=== PATIENT | female | born 1990 | race Caucasian/White ===

== ENCOUNTER 2016-06-10 18:45 | Emergency (ER) | payer OTHER ==
[~2016-06-10] VITALS: Ht 167.6 cm; Wt 68.0 kg
[~2016-06-10 18:45] MED LIST: CIPRO500 M1 PO; DESMOPRESS10 MCG/0.2 NAS; DILAUDID2 M1 PO; DOXYCYCLINE HY100 M4 PO; EXCEDRIN EXTRA1 EACH PO; IBUPROFEN800 M1 PO; MIRENA1 EACH; NEULASTA6 MG/0.6 M IM; PERCOCET 5-3251 EACH PO; PRENATAL1 TA2 PO
[2016-06-10] MEDS ORDERED: PYRIDIUM100 M1 PO (19:34)
[2016-06-10] MEDS ORDERED: MACROBID 100 M100 MG PO (19:34)
--- NOTE | 2016-06-10 19:34 | ED GI/GU/ABDOMINAL COMPLAINT ---
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) midazolam (From VERSED) (PER PT - MAKES ME VERY EMOTIONAL, EXTREME MOOD SWINGS 09/24/15) Reconcile Medications Aspirin/Acetaminophen/Caffeine (Excedrin Extra Strength Caplet) 1 EACH TABLET 2 TAB PO PRN PAIN (Reported) Ciprofloxacin HCl (Cipro) 500 MG TABLET 1 TAB PO BID URINE/KIDNEY INFECTION Desmopressin Acetate 10 MCG/0.1 ML SPRAY.PUMP 1 SPRAY YELITZA AD PRN BLEEDING ( Reported) Doxycycline Hyclate 100 MG TABLET 1 TAB PO BID infection Hydromorphone HCl (Dilaudid) 2 MG TABLET 2 TAB PO Q4 PRN pain Ibuprofen 800 MG TABLET 1 TAB PO TID PAIN (Reported) Levonorgestrel (Mirena) 1 EACH IUD CONTROL (Reported) Oxycodone HCl/Acetaminophen (Percocet 5-325 MG Tablet) 1 EACH TABLET 1 TAB PO TID PRN pain ten...[id number] Pegfilgrastim (Neulasta) 6 MG/0.6 ML SYRINGE 6 MG IM Q30D WHITE BLOOD CELLS ( Reported) Phenazopyridine HCl (Pyridium) 100 MG TABLET 1 TAB PO TID PRN DYSURIA Triage Note: 25 Y/O FEMALE C/O URINARY SYMPTOMS. STATES SHE IS "PEEING RAZOR BLADES". TOOK AZO WITH NO RELIEF. TOOK TYLENOL AT 1715 WITH GOOD RELIEF OF FEVER, NOT OF PAIN PER PT. Triage Nurses Notes Reviewed? yes ? N Is pt currently ? No Onset: Gradual Duration: hour(s): (3) Timing: remote history Quality/Severity: moderate Severity Numbers: 8 Location: WITH URINATION Radiation: back Activities at Onset: none Prior Abdominal Problems: similar symptoms Past Sexual History: Unobtainable at this time HPI: Patient is a 25-year-old female with history of von Willebrand's and autoimmune thrombocytopenia with history of neutropenic fever on Neupogen complaining of bilateral low back pain, dysuria urgency and frequency that started about 2-3 hours prior to arrival. History of UTI several years ago. Fevers up to 102 prior to arrival that was treated with Tylenol. Denies any vomiting but reports nausea. Denies any chest pain, shortness of breath, upper respiratory symptoms or abdominal pain. She does overpressure over the bladder. Symptoms moderate to severe. Denies any radiation of the pain. (KAYKAY PÉREZ) Vital Signs & Intake/Output Vital Signs & Intake/Output Vital Signs Date Time Temp Pulse Resp B/P Pulse O2 O2 Flow FiO2 Ox Delivery Rate 06/10 2345 97.6 96 18 119/79 96 Room Air 06/10 2244 97.2 103 18 122/82 96 Room Air 06/10 2037 98.2 87 18 125/75 100 Room Air 06/10 1849 98.0 90 18 123/83 99 Room Air ED Intake and Output 06/11 0000 06/10 1200 Intake Total 1000 Output Total Balance 1000 Intake, IV 1000 Patient 150 lb Weight Past History Travel History Traveled to [place] past 21 day No Medical History Neurological: migraine EENT: NONE Cardiovascular: NONE Respiratory: NONE Gastrointestinal: NONE Hepatic: NONE Renal: NONE Musculoskeletal: NONE Psychiatric: NONE Endocrine: NONE Blood Disorders: VON WILLDEBRAUNS AUTOIMMUNE PANCYTOPENIA Cancer(s): NONE 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 No (KAYKAY PÉREZ) Medical History Any Pertinent Medical History? see below for history (TERESA LEE,VINAY Cee) Review of Systems Review of Systems Constitutional: Reports: fever, malaise. Comments Review of systems: See HPI, All other systems negative. Constitutional, no weight loss HEENT: No visual changes no sore throat no congestion Cardiovascular: No chest pain ,palpitation , orthopnea or ankle swelling Skin, no jaundice no rashes Respiratory: No dyspnea cough sputum or hemoptysis GI: no vomiting : Positive dysuria and hematuria Muscle skeletal: no neck pain, Neurologic: No numbness no confusion Psych: No stress anxiety or depression,. Heme/endocrine: No bruising no bleeding no polyuria or polydipsia Immunology: No splenectomy or history of AIDS (KAYKAY PÉREZ) Physical Exam Physical Exam General Appearance: well developed/nourished, alert, awake, UNCOMFORTABLE Gastrointestinal: normal bowel sounds, soft Comments: Well-developed well-nourished person in no acute distress HEENT: Nose is atraumatic. External auditory canal and Tympanic membranes clear. Pharynx normal. No swelling or edema. Neck:NORMAL INSPECTION Back: BILATERAL CVA TENDERNESS. Full range of motion Cardiovascular: Regular rate and rhythms no murmurs rubs or gallops, normal JVP Respiratory: Chest nontender. No respiratory distress.breath sounds clear to auscultation bilaterally Abdomen: Soft, nontender nondistended, no appreciable organomegaly. Normal bowel sounds. No ascites Extremity: No edema Neuro: Alert oriented x3 Skin: No appreciable rash on exposed skin, skin is warm and dry. Psych: Mood and affect is normal, memory and judgment is normal. (BOBBY ESTRADA,KAYKAY) Core Measures ACS in differential dx? No Severe Sepsis Present: No Septic Shock Present: No (TERESA LEE,VINAY Cee) Progress Differential Diagnosis: UTI/pyelo, DEHYDRATION, LIKE i ABNORMALITY, SEPSIS Radiology Impression: PATIENT: ALEXUS RAMIREZ PRESENT AGE: 25 PATIENT ACCOUNT NO: [id number] : 90 LOCATION: [facility] ORDERING PHYSICIAN: VINAY EASON MD SERVICE DATE: 06/10/16 EXAM TYPE: CAT - CT ABD & PELVIS W IV CONTRAST EXAMINATION: CT ABDOMEN AND PELVIS WITH CONTRAST CLINICAL INFORMATION: Back pain and UTI. COMPARISON: None. TECHNIQUE: Multidetector volumetric imaging was performed of the abdomen and pelvis before and after the IV administration of 97 mL of Omnipaque 320 intravenous contrast. Sagittal and coronal reformatted images were obtained on the technologist's workstation. DLP: 274 mGy-cm. FINDINGS: LUNG BASES: The visualized lung bases are unremarkable. LIVER, GALLBLADDER, AND BILIARY TREE: The liver is normal in size, shape, and attenuation. No focal hepatic lesion or biliary ductal dilatation is present. The gallbladder is unremarkable with no evidence of radiopaque gallstones, gallbladder wall thickening, or obvious pericholecystic inflammatory changes. PANCREAS: Unremarkable. SPLEEN: Unremarkable. ADRENAL GLANDS: Unremarkable. KIDNEYS AND URETERS: Subtle areas of cortical striation in hypoattenuation are present around the calyces in both kidneys, more notably in the upper poles. These findings may represent subtle areas of mild pyelonephritis vs late corticomedullary phase differentiation (a normal appearance of the kidney at a time enhancement). No significant perinephric inflammatory changes. No significant hypoperfusion of the kidneys. No nephrolithiasis or hydronephrosis. Ureters are normal in appearance. BLADDER: Unremarkable. GASTROINTESTINAL TRACT: Stomach, small bowel, and colon are normal in caliber. No bowel wall thickening or surrounding inflammatory changes. Appendix is normal. No intraperitoneal free fluid or free air. ABDOMINAL WALL: Punctate fat-containing umbilical hernia. No bowel involvement. LYMPH NODES: Normal. VASCULAR: Unremarkable. PELVIC VISCERA: The uterus and adnexa are unremarkable. OSSEOUS STRUCTURES: Unremarkable. IMPRESSION: Subtle foci of cortical hypoattenuation in both kidneys which are concerning for early pyelonephritis. It is possible that these are artifactual from the phase of contrast enhancement, though this is less likely. DICTATED BY: JAMAAL RODRÍGUEZ MD DATE/TIME DICTATED:06/10/162144 PERSONAL TRAINER:VICKI DATE/TIME TRANSCRIBED:06/10/162144 CONFIDENTIAL, DO NOT COPY WITHOUT APPROPRIATE AUTHORIZATION. <Electronically signed in Other Vendor System> SIGNED BY: JAMAAL RODRÍGUEZ MD 06/10/162205 Initial ED EKG: none Hand-Off Endorsed To: VINAY EASON MD Endorsed Time: 1954 Pending: labs (KAYKAY PÉREZ) Plan of Care: Orders Procedure Date/time Status BLOOD CULTURE 06/10 1945 Active COMPREHENSIVE METABOLIC PANEL 06/10 1945 Complete CBC WITHOUT DIFFERENTIAL 06/10 1945 Complete CULTURE,URINE 06/10 1849 Active URINE 06/10 1849 Complete URINALYSIS 06/10 1849 Complete Current Medications Sig/Angel Start time Last Medication Dose Stop Time Status Admin Ciprofloxacin 500 MG ONCE ONE 06/10 1944 CAN (Cipro) 06/10 1945 Oxycodone HCl 5 MG ONCE ONE 06/10 1944 CAN (Roxicodone) 06/10 1945 Laboratory Tests 06/10/16 2011: Anion Gap 10, Estimated GFR > 60, BUN/Creatinine Ratio 30.0 H, Glucose 88, Calcium 8.8, Total Bilirubin 0.3, AST 20, ALT 32, Alkaline Phosphatase 80, Total Protein 6.8, Albumin 4.3, Globulin 2.5, Albumin/Globulin Ratio 1.7, CBC w Diff NO MAN DIFF REQ, RBC 4.85, MCV 78.0 L, MCH 25.5 L, RDW 17.8 H, MPV 11.7 H, Gran % 31.0 L, Lymphocytes % 29.6, Monocytes % 13.7 H, Eosinophils % 24.8 H, Basophils % 0.9, Absolute Granulocytes 2.0, Absolute Lymphocytes 1.9, Absolute Monocytes 0.9 H, Absolute Eosinophils 1.6, Absolute Basophils 0.1, PUBS MCHC 32.7 L 06/10/161899: Urine Color ORANG H, Urine Clarity CLEAR, Urine pH 5.0, Ur Specific [place] 1.020, Urine Protein 100 H, Urine Ketones TRACE H, Urine Nitrite POS H, Urine Bilirubin NEG, Urine Urobilinogen >=8.0 H, Ur Leukocyte Esterase SMALL H, Ur Microscopic SEDIMENT EXAMINED, Urine RBC 3-5, Urine WBC 25-50 H, Ur Epithelial Cells MANY H, Urine Hemoglobin TRACE-INTACT, Urine Glucose 250 H, Urine Test NEGATIVE Microbiology 06/10 2115 BLOOD: Blood Culture - RECD 06/10 2010 BLOOD: Blood Culture - RECD 06/10 1899 URINE ROUT: Urine Culture - RECD Diagnostic Imaging: Discussed w/RAD: CT Scan. Radiology Impression: PATIENT: ALEXUS RAMIREZ PRESENT AGE: 25 PATIENT ACCOUNT NO: [id number] : 90 LOCATION: [facility] ORDERING PHYSICIAN: VINAY EASON MD SERVICE DATE: 06/10/16 EXAM TYPE: CAT - CT ABD & PELVIS W IV CONTRAST EXAMINATION: CT ABDOMEN AND PELVIS WITH CONTRAST CLINICAL INFORMATION: Back pain and UTI. COMPARISON: None. TECHNIQUE: Multidetector volumetric imaging was performed of the abdomen and pelvis before and after the IV administration of 97 mL of Omnipaque 320 intravenous contrast. Sagittal and coronal reformatted images were obtained on the technologist's workstation. DLP: 274 mGy-cm. FINDINGS: LUNG BASES: The visualized lung bases are unremarkable. LIVER, GALLBLADDER, AND BILIARY TREE: The liver is normal in size, shape, and attenuation. No focal hepatic lesion or biliary ductal dilatation is present. The gallbladder is unremarkable with no evidence of radiopaque gallstones, gallbladder wall thickening, or obvious pericholecystic inflammatory changes. PANCREAS: Unremarkable. SPLEEN: Unremarkable. ADRENAL GLANDS: Unremarkable. KIDNEYS AND URETERS: Subtle areas of cortical striation in hypoattenuation are present around the calyces in both kidneys, more notably in the upper poles. These findings may represent subtle areas of mild pyelonephritis vs late corticomedullary phase differentiation (a normal appearance of the kidney at a time enhancement). No significant perinephric inflammatory changes. No significant hypoperfusion of the kidneys. No nephrolithiasis or hydronephrosis. Ureters are normal in appearance. BLADDER: Unremarkable. GASTROINTESTINAL TRACT: Stomach, small bowel, and colon are normal in caliber. No bowel wall thickening or surrounding inflammatory changes. Appendix is normal. No intraperitoneal free fluid or free air. ABDOMINAL WALL: Punctate fat-containing umbilical hernia. No bowel involvement. LYMPH NODES: Normal. VASCULAR: Unremarkable. PELVIC VISCERA: The uterus and adnexa are unremarkable. OSSEOUS STRUCTURES: Unremarkable. IMPRESSION: Subtle foci of cortical hypoattenuation in both kidneys which are concerning for early pyelonephritis. It is possible that these are artifactual from the phase of contrast enhancement, though this is less likely. DICTATED BY: JAMAAL RODRÍGUEZ MD DATE/TIME DICTATED:06/10/162144 PERSONAL TRAINER:VICKI DATE/TIME TRANSCRIBED:06/10/162144 CONFIDENTIAL, DO NOT COPY WITHOUT APPROPRIATE AUTHORIZATION. <Electronically signed in Other Vendor System> SIGNED BY: JAMAAL RODRÍGUEZ MD 06/10/164 Comments: 06/10/2016 10:43:57 PM I have updated neck: Her test results and her calculated ANC is just over 2000. The patient feels comfortable with treating her kidney infection at home with pain medication and antibiotics along as the pain is controlled. Dilaudid has been ordered. 06/10/2016 11:56:25 PM patient's pain has improved and she feels confident that if she takes 4 mg of Dilaudid every 4-6 hours that her pain will be adequately controlled at home. She feels comfortable with outpatient treatment at this point. She has an appointment scheduled tomorrow for IgG treatment and will be seeing her hematology clinical operations specialist. (TERESA LEE,VINAY Cee) Departure Departure Time of Disposition: 1931 Disposition: HOME OR SELF CARE Condition: Stable Clinical Impression Primary Impression: Urinary tract infection Qualifiers: Urinary tract infection type: acute cystitis Hematuria presence: with hematuria Qualified Code: N30.01 - Acute cystitis with hematuria Referrals: CHAS WOLFF MD (PCP/Family) Departure Forms: Customer Survey General Discharge Information (BOBBYKAYKAY MENDEZ) Departure Additional Instructions: Follow-up with your hematology oncology appointment tomorrow as scheduled. Take antibiotics as prescribed. Increase fluids. Take Pyridium as directed to help with bladder spasms. Notify your primary care doctor of this emergency department visit and treatment plan. Return for worsening symptoms or concerns. Please note that there might be incidental findings in your evaluation that are unrelated to the current emergency department visit. Please notify your primary care doctor about this emergency department visit in order to obtain and review all of the testing performed so that these incidental findings can be monitored as needed. If you had an x-ray performed, please understand that some fractures may not be seen on the initial set of x-rays. If your symptoms persist you might need a repeat set of x-rays to check for such a fracture. If you had a laceration evaluated, please understand that foreign bodies such as glass or wood may not be visible to the naked eye or on plain x-rays. If the wound becomes red, swollen, increasingly more painful or if there is any drainage from the wound, please have it reevaluated by a physician for the possibility of a retained foreign body. Thank you for choosing the [facility] for your care. It was a pleasure to serve you today. Vinay Eason M.D. [facility] Prescriptions: Current Visit Scripts Ciprofloxacin HCl (Cipro) 1 TAB PO BID #20 TAB Hydromorphone HCl (Dilaudid) 2 TAB PO Q4 PRN pain #20 TAB Phenazopyridine HCl (Pyridium) 1 TAB PO TID PRN DYSURIA #10 TAB (TERESA LEE,VINAY Cee) Critical Care Note Critical Care Note Critical Care Time: 30-74 min (VINAY EASON MD)
[2016-06-10] MEDS ORDERED: CIPRO500 M1 PO (19:40)
[2016-06-10 20:21] LABS: ABSOLUTE BASOPHIL COUNT 0.1 /CUMM (0.0-0.2); ABSOLUTE EOSINOPHIL COUNT 1.6 /CUMM (0.0-0.7); ABSOLUTE LYMPH COUNT 1.9 /CUMM (1.2-3.4); ABSOLUTE MONOCYTE COUNT 0.9 /CUMM (0.10-0.60); BASOPHIL % 0.9 % (0.0-2.0); HEMATOCRIT 37.8 % (37-47); MEAN CORPUSCULAR HGB 25.5 PG (27.0-31.0); MEAN CORPUSCULAR HGB CONC 32.7 G/DL (33.0-37.0); MEAN PLATELET VOLUME 11.7 FL (7.4-10.4); PLATELET COUNT 116 /CUMM (130-400); RBC DISTRIBUTION WIDTH 17.8 % (11.5-14.5); RED BLOOD CELL CT 4.85 /CUMM (4.20-5.40); WHITE BLOOD CELL COUNT 6.5 /CUMM (4.8-10.8)
[2016-06-10 20:35] LABS: EOSINOPHIL % 24.8 % (0-5)
--- NOTE | 2016-06-10 22:06 | CT SCAN REPORT ---
EXAMINATION: CT ABDOMEN AND PELVIS WITH CONTRAST CLINICAL INFORMATION: Back pain and UTI. COMPARISON: None. TECHNIQUE: Multidetector volumetric imaging was performed of the abdomen and pelvis before and after the IV administration of 97 mL of Omnipaque 320 intravenous contrast. Sagittal and coronal reformatted images were obtained on the technologist's workstation. DLP: 274 mGy-cm. FINDINGS: LUNG BASES: The visualized lung bases are unremarkable. LIVER, GALLBLADDER, AND BILIARY TREE: The liver is normal in size, shape, and attenuation. No focal hepatic lesion or biliary ductal dilatation is present. The gallbladder is unremarkable with no evidence of radiopaque gallstones, gallbladder wall thickening, or obvious pericholecystic inflammatory changes. PANCREAS: Unremarkable. SPLEEN: Unremarkable. ADRENAL GLANDS: Unremarkable. KIDNEYS AND URETERS: Subtle areas of cortical striation in hypoattenuation are present around the calyces in both kidneys, more notably in the upper poles. These findings may represent subtle areas of mild pyelonephritis vs late corticomedullary phase differentiation (a normal appearance of the kidney at a time enhancement). No significant perinephric inflammatory changes. No significant hypoperfusion of the kidneys. No nephrolithiasis or hydronephrosis. Ureters are normal in appearance. BLADDER: Unremarkable. GASTROINTESTINAL TRACT: Stomach, small bowel, and colon are normal in caliber. No bowel wall thickening or surrounding inflammatory changes. Appendix is normal. No intraperitoneal free fluid or free air. ABDOMINAL WALL: Punctate fat-containing umbilical hernia. No bowel involvement. LYMPH NODES: Normal. VASCULAR: Unremarkable. PELVIC VISCERA: The uterus and adnexa are unremarkable. OSSEOUS STRUCTURES: Unremarkable. IMPRESSION: Subtle foci of cortical hypoattenuation in both kidneys which are concerning for early pyelonephritis. It is possible that these are artifactual from the phase of contrast enhancement, though this is less likely.
[2016-06-10 23:45] VITALS: BP 119/79
[2016-06-12] MEDS ORDERED: NEUPOGEN300 MCG/01 SC (14:14)
[2016-06-12] MEDS ORDERED: BUTALB-ACETAMI1 EACH PO (14:14)
== END 2016-06-11 00:12 ==
LOC: ERH 18:45
PROVIDERS: Physician Assistant
DX: N39.0 Urinary tract infection, site not specified (principal)
CPT/HCPCS: 74177; 81001; 81025; 87040; 87086; 96361; 96374; 96375; 96376; J0696

== ENCOUNTER 2016-06-12 13:07 | Inpatient (IN) | payer OTHER ==
[~2016-06-12] VITALS: Ht 167.6 cm; Wt 68.0 kg
[~2016-06-12 13:07] MED LIST changes: +MACROBID 100 M100 MG PO; +PYRIDIUM100 M1 PO
--- NOTE | 2016-06-12 13:16 | NUR ---
PT TO ED C/O CONTINUED UTI. PT WAS SEEN IN ED THURSDAY AND SENT HOME WITH ABX, PYRIDIUM AND PAIN MEDS. PT STATES THIS AM THE PAIN CAME BACK, ALSO HAD A FEVER AND VOMITING. AFEBRILE NOW.
--- NOTE | 2016-06-12 13:18 | NUR ---
PT STATES WAS SENT HOME WITH PO DILAUDID, WHICH INITIALLY WORKED. TOOK A DOSE AT 1000 THIS AM, AND "IT STILL HASN'T KICKED IN". PT ALSO STATES "I WAS NEUTROPENIC YESTERDAY AT THE [facility] [employer]S OFFICE." PT PROVIDED MASK.
--- NOTE | 2016-06-12 13:29 | ED GI/GU/ABDOMINAL COMPLAINT ---
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 PT WAS SEEN IN ED THURSDAY AND SENT HOME WITH ABX, PYRIDIUM AND PAIN MEDS. PT STATES THIS AM THE PAIN CAME BACK, ALSO HAD A FEVER AND VOMITING. AFEBRILE NOW. Triage Nurses Notes Reviewed? yes ? N Is pt currently ? No Onset: Gradual Duration: getting worse Timing: recent history Quality/Severity: moderate Severity Numbers: 10 Radiation: back Activities at Onset: none HPI: Patient is a 25-year-old female with a past medical history of autoimmune PANcytopenia and von Willebrand's disorder in which patient last received IVIG yesterday by her poultry scientist Dr. Park who presents emergency room with worsening concerns of urinary tract infection fevers chills and back pain and dysuria and increased frequency of urination. Patient was seen and evaluated here at [place] emergency room 2 days ago in which patient was given ciprofloxacin, Pyridium and Dilaudid for her symptoms she states that yesterday her symptoms improved however this morning symptoms worsened in which patient has had unrelenting pain multiple EPISODES OF vomiting and is unable to tolerate anything by mouth Patient has been compliant with ciprofloxacin however feels worse. (RENE ESTRADA,LIBORIO) Reconcile Medications Butalb/Acetaminophen/Caffeine (Dxnlvk-Hoapcmyu-Mkik 50-325-40) 50 MG-325 MG-40 MG TABLET 1 TAB PO BID PRN HEADACHE (Reported) Ciprofloxacin HCl (Cipro) 500 MG TABLET 1 TAB PO BID URINE/KIDNEY INFECTION Desmopressin Acetate 10 MCG/0.1 ML SPRAY.PUMP 1 SPRAY YELITZA AD PRN BLEEDING ( Reported) Filgrastim (Neupogen) 300 MCG/0.5 ML SYRINGE 1 INJ SC QMON UNKNOWN (Reported) Hydromorphone HCl (Dilaudid) 2 MG TABLET 2 TAB PO Q4 PRN pain Phenazopyridine HCl (Pyridium) 100 MG TABLET 1 TAB PO TID PRN DYSURIA (VASU VALADEZESTELLA) Past History Travel History Traveled to [place] past 21 day No Medical History Any Pertinent Medical History? see below for history Neurological: migraine EENT: NONE Cardiovascular: NONE Respiratory: NONE Gastrointestinal: NONE Hepatic: NONE Renal: NONE Musculoskeletal: NONE Psychiatric: NONE Endocrine: NONE Blood Disorders: VON WILLDEBRAUNS AUTOIMMUNE PANCYTOPENIA Cancer(s): NONE TRAVEL ADMINISTRATOR/Reproductive: NONE Surgical History Surgical History: non-contributory, N Psychosocial History What is your primary language Croatian Tobacco Use: Never used ETOH Use: occasional use Illicit Drug Use: denies illicit drug use Family History Hx Contributory? No (LIBORIO BERNAL) Review of Systems Review of Systems Constitutional: Reports: see HPI, chills, fever. EENTM: Reports: no symptoms. Respiratory: Reports: no symptoms. Cardiovascular: Reports: no symptoms. GI: Reports: see HPI. Genitourinary: Reports: see HPI. Musculoskeletal: Reports: see HPI, back pain. Skin: Reports: no symptoms. Neurological/Psychological: Reports: no symptoms. Hematologic/Endocrine: Reports: no symptoms. Immunologic/Allergic: Reports: no symptoms. All Other Systems: Reviewed and Negative (LIBORIO BERNAL) Physical Exam Physical Exam General Appearance: no apparent distress, alert, comfortable Gastrointestinal: normal bowel sounds, soft Comments: Well-developed well-nourished person in no acute distress HEENT: Normal EENT exam, . Neck: Supple, no lymphadenopathy, normal range of motion without pain or tenderness Back: Bilateral CVA tenderness. Full range of motion Cardiovascular: Regular rate and rhythms no murmurs rubs or gallops, normal JVP Respiratory: Chest nontender. No respiratory distress.breath sounds clear to auscultation bilaterally Abdomen: Soft, nontender nondistended, no appreciable organomegaly. Normal bowel sounds. No ascites Extremity: No edema, no calf tenderness to palpation, normal and equal pulses. Neuro: Alert oriented x3, motor sensory normal, Skin: No appreciable rash on exposed skin, skin is warm and dry. Psych: Mood and affect is normal, memory and judgment is normal. Core Measures ACS in differential dx? No Severe Sepsis Present: No Septic Shock Present: No (RENE ESTRADA,LIBOROI) Progress Differential Diagnosis: AAA, AMI, appendicitis, biliary colic, bowel obstruction , colon cancer, cholecystitis, diverticulitis, ectopic , endometritis, esophageal varices, gastritis, hepatitis, hernia, hemorrhoids, ischemic bowel, inflamm bowel dis, intrauterine , kidney stone, Cheri-Sidney tear, ovarian cyst, ovarian torsion, pancreatitis, PID/cervicitis, peptic ulcer, PUD/ GERD, perforated viscous, SBO, threatened AB, UTI/pyelo Plan of Care: Orders Procedure Date/time Status CBC WITHOUT DIFFERENTIAL 06/13 0600 Active BASIC ELECTROLYTES PLUS BUN&CR 06/13 0600 Active Regular Diet 06/12 D Active LACTIC ACID 06/12 1641 Active BLOOD CULTURE 06/12 1531 Active EKG 06/12 1527 Active Pathway - chart 06/12 1526 Active BLOOD CULTURE 06/12 1526 Active Code Status 06/12 1526 Active Admit to inpatient 06/12 1506 Active Vital Signs 06/12 1506 Active Code Status 06/12 1506 Complete Patient Data 06/12 1449 Active Intake & Output 06/12 1407 Active URINE 06/12 1342 Complete LACTIC ACID 06/12 1341 Complete URINALYSIS 06/12 1340 Complete COMPREHENSIVE METABOLIC PANEL 06/12 1340 Complete CBC WITHOUT DIFFERENTIAL 06/12 1340 Complete House Staff 06/12 UNK Active VTE Mechanical Prophylaxis 06/12 UNK Active Current Medications Sig/Angel Start time Last Medication Dose Stop Time Status Admin Cefazolin Sodium 1,000 MG IQ8 06/12 2200 AC (Kefzol-Ancef Inj) Acetaminophen 650 MG Q6P PRN 06/12 1530 AC (Tylenol) Hydromorphone HCl 0.6 MG Q4-6 PRN PRN 06/12 1530 AC (Dilaudid) Ondansetron HCl 4 MG Q6P PRN 06/12 1530 AC (Zofran) Sodium Chloride 1,000 ML Q13H 06/12 1530 AC (Normal Saline 0.9%) 06/13 0429 Laboratory Tests 06/12/16 1353: Lactic Acid 0.7, Urine Test NEGATIVE 06/12/16 1353: Anion Gap 11, Estimated GFR > 60, BUN/Creatinine Ratio 14.3, Glucose 89, Calcium 8.7, Total Bilirubin 0.4, AST 23, ALT 34, Alkaline Phosphatase 87, Total Protein 7.4, Albumin 4.3, Globulin 3.1, Albumin/Globulin Ratio 1.4, CBC w Diff MAN DIFF ORDERED, RBC 4.69, MCV 78.9 L, MCH 25.7 L, RDW 17.5 H, MPV 10.8 H, Gran % 30.0 L, Lymphocytes % 28.0, Monocytes % 9.6 H, Eosinophils % 31.6 H, Basophils % 0.8, Absolute Granulocytes 1.8, Absolute Lymphocytes 1.7, Absolute Monocytes 0.6, Absolute Eosinophils 1.9, Absolute Basophils 0, Platelet Estimate DECREASED, Hypochromic-Microcytic 1+, Anisocytosis 1+, Microcytic Cells 1+, PUBS MCHC 32.5 L, Urine Color YEL, Urine Clarity HAZY H, Urine pH 6.5, Ur Specific [place] 1.015, Urine Protein NEG, Urine Ketones NEG, Urine Nitrite POS H, Urine Bilirubin NEG, Urine Urobilinogen 1.0, Ur Leukocyte Esterase TRACE H, Ur Microscopic SEDIMENT EXAMINED, Urine WBC 5-10 H, Ur Epithelial Cells MANY H, Urine Hemoglobin NEG, Urine Glucose NEG Microbiology 06/12 1531 BLOOD: Blood Culture - COLB 06/12 1526 BLOOD: Blood Culture - COLB Due to history of present illness and exam findings patient has likely worsening symptoms of pyelonephritis. Patient will be admitted for IV antibiotics. Discussed admission plan with patient who agrees Patient states that the first dose of Dilaudid improved symptoms however she was requesting another which this was administered. Patient was given Cefzil and in which urine culture showed susceptibility (LIBORIO BERNAL) Initial ED EKG: none (LIBORIO BERNAL) Departure Departure Disposition: STILL A PATIENT Condition: Stable Clinical Impression Primary Impression: Pyelonephritis Referrals: CHAS WOLFF MD (PCP/Family) Departure Forms: Customer Survey General Discharge Information Admission Note Spoke With: JORJE LEE,NICOLE Documentation of Exam: Documentation of any treatments & extenuating circumstances including Concerns Regarding Discharge (functional status, medication knowledge or non-compliance, living conditions, etc.) that warrant an admission rather than observation: [ Discussed admission with who agrees with general medicine admission which patient has failed outpatient treatment of ANTIBIOTICS IN which patient requires IV antibiotic, IV fluid resuscitation, IV pain medication and nausea medication. Outpatient treatment at this time due to worsening symptoms and unresolved PYLENEPHRITIS in UTI would be medically harmful] (RENE ESTRADA,LIBORIO) PA/BIOFUELS PLANT CONSTRUCTION WORKER Co-Sign Statement Statement: ED Attending supervision documentation- [] I saw and evaluated the patient. I have also reviewed all the pertinent lab results and diagnostic results. I agree with the findings and the plan of care as documented in the PA's/BIOFUELS PLANT CONSTRUCTION WORKER's documentation. [x] I have reviewed the ED Record and agree with the PA's/BIOFUELS PLANT CONSTRUCTION WORKER's documentation. [] Additions or exceptions (if any) to the PAs/BIOFUELS PLANT CONSTRUCTION WORKER's note and plan are summarized below: [] (ESTELLA LEONE DO)
--- NOTE | 2016-06-12 13:56 | NUR ---
IV ESTABLISHED BLOOD AND URINE SENT TO LAB
[2016-06-12 14:06] LABS: ABSOLUTE BASOPHIL COUNT 0 /CUMM (0.0-0.2); ABSOLUTE EOSINOPHIL COUNT 1.9 /CUMM (0.0-0.7); ABSOLUTE GRANULOCYTE CT 1.8 /CUMM (1.4-6.5); ABSOLUTE LYMPH COUNT 1.7 /CUMM (1.2-3.4); ABSOLUTE MONOCYTE COUNT 0.6 /CUMM (0.10-0.60); BASOPHIL % 0.8 % (0.0-2.0); EOSINOPHIL % 31.6 % (0-5); MEAN CORPUSCULAR HGB 25.7 PG (27.0-31.0); MEAN CORPUSCULAR HGB CONC 32.5 G/DL (33.0-37.0); MEAN CORPUSCULAR VOLUME 78.9 FL (81.0-99.0); MEAN PLATELET VOLUME 10.8 FL (7.4-10.4); PLATELET COUNT 124 /CUMM (130-400); RBC DISTRIBUTION WIDTH 17.5 % (11.5-14.5); RED BLOOD CELL CT 4.69 /CUMM (4.20-5.40)
--- NOTE | 2016-06-12 14:08 | NUR ---
PT MEDICATED FOR PAIN ABX GIVEN, FLUIDS INFUSING DIRECTED
[2016-06-12] MEDS ORDERED: BUTALB-ACETAMI1 EACH PO (14:14)
[2016-06-12] MEDS ORDERED: NEUPOGEN300 MCG/01 SC (14:14)
--- NOTE | 2016-06-12 14:50 | History & Physical ---
LEX LEE,[facility] 06/12/16 1450: General Information and HPI History of Present Illness: Ms. Caraballo is a 25-year-old with a PMH significant for immunopancytopenia ( diagnosed in 2002) and Von Willebrand disease on weekly Neupogen and monthly IVIG, recurrent UTIs (3-4 times a year), chronic sinusitis s/p surgery in December 2015 complicated by toxic shock syndrome and migraine who presents with persistent flank pain and dysuria with nausea and vomiting. Patient was seen in ED 2 days ago for UTI and was discharged on ciprofloxacin, Pyridium and Dilaudid. She felt improvement in her symptoms until yesterday when she experienced sudden worsening of her back pain with a fever up to 102 followed by nausea and vomiting. She reports at least 5 episodes of NBNB emesis since then. Patient continued to be febrile up to 101 this morning despite taking Tylenol and being complaint with the antibiotics, prompting her to return to ED today. In ED patient received 2 doses of IV Dilaudid 1mg and IV Zofran with some relief in her flank pain and nausea. She also received a dose of IV cefazolin and a 1L bolus of normal saline. Patient follows with hematologists Dr. Park and Dr. Warner at [facility]. She gets IVIG once a month and Neupogen every Thursday. Yesterday she was instructed by her sealer dry cell to take an extra dose of Neupogen because her neutrophil count was reportedly lower than her baseline. She has a history of frequent UTI averaging about 3-4 times a year. She think she usually takes amoxicillin for it but is not certain. The patient reports being allergic to Bactram (Red Man's syndrome). ROS positive for frequent epistaxis for which she takes desmopressin as needed. She reports taking it about once a month in average. Denies chest pain, palpitations dyspnea, abdominal pain, constipation, diarrhea, lightheadedness, dizziness, edema. No recent sick contact or travel. She lives with her fiance and 2 year old child. Denies any tobacco use. She drinks EtOH occasionally. FH significant for "bleeding issues" in grandfather's side and DM (dialysis dependent) and polysubstance abuse in father. Full code. 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) midazolam (From VERSED) (PER PT - MAKES ME VERY EMOTIONAL, EXTREME MOOD SWINGS 09/24/15) Home Med list Butalb/Acetaminophen/Caffeine (Vlcyfh-Eivhyysw-Tefy 50-325-40) 50 MG-325 MG-40 MG TABLET 1 TAB PO BID PRN HEADACHE (Reported) Ciprofloxacin HCl (Cipro) 500 MG TABLET 1 TAB PO BID URINE/KIDNEY INFECTION Desmopressin Acetate 10 MCG/0.1 ML SPRAY.PUMP 1 SPRAY YELITZA AD PRN BLEEDING ( Reported) Filgrastim (Neupogen) 300 MCG/0.5 ML SYRINGE 1 INJ SC QMON UNKNOWN (Reported) Hydromorphone HCl (Dilaudid) 2 MG TABLET 2 TAB PO Q4 PRN pain Phenazopyridine HCl (Pyridium) 100 MG TABLET 1 TAB PO TID PRN DYSURIA Past History Travel History Traveled to [place] past 21 day No Medical History Neurological: migraine EENT: NONE Cardiovascular: NONE Respiratory: NONE Gastrointestinal: NONE Hepatic: NONE Renal: NONE Musculoskeletal: NONE Psychiatric: NONE Endocrine: NONE Blood Disorders: VON WILLDEBRAUNS AUTOIMMUNE PANCYTOPENIA Cancer(s): NONE FURNITURE RENTAL CONSULTANT/Reproductive: NONE Influenza Vaccine: 06/01/16 Surgical History Surgical History: Sinus surgery Past Family/Social History Family History Relations & Conditions if any FATHER FH: diabetes mellitus, Onset: Unknown. Psychosocial History Where do you live? Home Who Do You Live With? child, fiance ETOH Use: occasional use Illicit Drug Use: denies illicit drug use Review of Systems Review of Systems Constitutional: Reports: see HPI. Exam & Diagnostic Data Last 24 Hrs of Vital Signs/I&O Vital Signs Date Time Temp Pulse Resp B/P Pulse O2 O2 Flow FiO2 Ox Delivery Rate 06/12 1447 98 18 129/85 98 Room Air 06/12 1407 98 06/12 1314 98.2 106 20 133/77 97 Room Air Intake & Output 06/12 1600 06/12 0800 06/12 0000 Intake Total 1000 Output Total Balance 1000 Intake, IV 1000 Patient 68.039 kg Weight Physical Exam General Appearance Alert, Oriented X3, Cooperative, Mild Distress Skin No Rashes, No Breakdown, No Significant Lesion HEENT Atraumatic, PERRLA, EOMI, Mucous Membr. moist/pink Neck Supple, No JVD Cardiovascular Regular Rate, Normal S1, Normal S2, No Murmurs, Gallops, Rubs Lungs Clear to Auscultation, Normal Air Movement Abdomen Normal Bowel Sounds, Soft, No Tenderness, Severe flank pain with CVA tenderness bilaterally Neurological Normal Speech, Strength at 5/5 X4 Ext, Normal Tone, Sensation Intact, Cranial Nerves 3-12 NL Extremities No Clubbing, No Cyanosis, No Edema, Normal Pulses, No Tenderness/ Swelling Last 24 Hrs of Labs/[place]: Laboratory Tests 06/12/16 1353: Lactic Acid 0.7, Urine Test NEGATIVE 06/12/16 1353: Anion Gap 11, Estimated GFR > 60, BUN/Creatinine Ratio 14.3, Glucose 89, Calcium 8.7, Total Bilirubin 0.4, AST 23, ALT 34, Alkaline Phosphatase 87, Total Protein 7.4, Albumin 4.3, Globulin 3.1, Albumin/Globulin Ratio 1.4, CBC w Diff MAN DIFF ORDERED, RBC 4.69, MCV 78.9 L, MCH 25.7 L, RDW 17.5 H, MPV 10.8 H, Gran % 30.0 L, Lymphocytes % 28.0, Monocytes % 9.6 H, Eosinophils % 31.6 H, Basophils % 0.8, Absolute Granulocytes 1.8, Absolute Lymphocytes 1.7, Absolute Monocytes 0.6, Absolute Eosinophils 1.9, Absolute Basophils 0, Platelet Estimate DECREASED, Hypochromic-Microcytic 1+, Anisocytosis 1+, Microcytic Cells 1+, PUBS MCHC 32.5 L, Urine Color YEL, Urine Clarity HAZY H, Urine pH 6.5, Ur Specific [place] 1.015, Urine Protein NEG, Urine Ketones NEG, Urine Nitrite POS H, Urine Bilirubin NEG, Urine Urobilinogen 1.0, Ur Leukocyte Esterase TRACE H, Ur Microscopic SEDIMENT EXAMINED, Urine WBC 5-10 H, Ur Epithelial Cells MANY H, Urine Hemoglobin NEG, Urine Glucose NEG Microbiology 06/12 1531 BLOOD: Blood Culture - COLB 06/12 1526 BLOOD: Blood Culture - COLB Assessment/Plan Assessment: Ms. Caraballo is a 25-year-old with a PMH significant for immunopancytopenia ( diagnosed in 2002) and Von Willebrand disease on weekly Neupogen and monthly IVIG, recurrent UTIs (3-4 times a year), chronic sinusitis s/p surgery in December 2015 complicated by toxic shock syndrome and migraine who presents with persistent flank pain and dysuria with nausea and vomiting, most likely 2/2 pyelonephritis. # Pyelonephritis In the setting of her CVA tenderness, dysuria with nause and vomiting, CT scan finding is highly suggestive of pyelonephritis. Patient has been on Cipro for 2 days without improvement. Patient was started on IV cefazolin and received a 1L bolus of IVF in ED. * Admit to general medicine floor * Continue cefazolin 1g IV Q8 * Follow pancultures * Cont IV hydration with NS at 75cc/hr * Adequate pain control with IV Dilaudid 0.6mg Q4-6 PRN severe pain * Control nausea with IV Zofran (get a baseline QTc with EKG) # Hematologic diseases - vWD and immunopancytopenia Patient carries a h/o immunopancytopenia (diagnosed in 2002) and Von Willebrand disease for which she is on weekly Neupogen and monthly IVIG. She follows with hematologists Dr. Park and Dr. Warner at [facility] and took an extra dose of Neupogen the day [employer]IVER because her neutrophil count was reportedly lower than her baseline. She takes desmopressin as needed for epistaxis. Her CBC on admission is unremarkable. * Give one does of desmopressin (nasal spray) * Avoid anticoagulations * Check CBC daily - Regular diet - Moderate pain pathway - DVTppx with ALPS - Full code. As Ranked By This Provider Problem List: 1. Pyelonephritis 2. Von Willebrand disease 3. Autoimmune pancytopenia 4. Urinary tract infection Core Measures/Miscellaneous Acute Coronary Syndrome ACS Diagnosis: No Cerebrovascular Accident CVA/TIA Diagnosis: No Congestive Heart Failure CHF Diagnosis: No Venous Thromboembolism VTE Risk Factors: Acute medical illness VTE Prophylaxis Ordered Inpt: Early Ambulation No [facility] VTE prophylaxis d/t: No contraindications No VTE Pharm Prophylaxis d/t: Blood coag disorder VTE Diagnosis: No VTE Type: NONE VTE Confirmed by (Test): NONE Severe Sepsis Severe Sepsis Present: No Septic Shock Septic Shock Present: No Miscellaneous Documentation Attending Case Discussed With: HAYDER MORENO M.D Primary Care Physician: CHAS WOLFF MD Patient sees these Specialists Heme/onc Level of Patient Care: General Medicine DICK PALAFOX 06/12/16 1530: Resident Review Statement Resident Statement: discussed with wedding planning internship, agreed with wedding planning internship, discussed with family, amended to note Other Findings: 25-year-old lady with past medical immunologic pancytopenia (Lee's syndrome), von Willebrand disease came to the hospital with chief complaint of failure of outpatient UTI therapy. She reported having neck pain, fever of 101, dysuria, frequency, urgency on Thursday and she came to open ED and was discharged on ciprofloxacin, by mouth Dilaudid with CT scan imaging showed possible early stages of pyelonephritis. Patient received 1 unit of IVIG on Thursday at [facility]( which is scheduled monthly ), and also injected herself with Neupogen per her sealer dry cell Dr. Park. Patient reported having multiple episodes of nonbloody vomiting, fever of 102 the morning does she came to the hospital. Patient also reports the bilateral back pain has not resolved. Patient denies any chest pain, shortness of breath, headache, diarrhea, constipation. She does report of very mild nasal bleed. Vital signs on admission were stable as noted above Physical exam remarkable for tachycardia and bilateral flank pain BP was unremarkable, absolute granulocyte was 1.8, platelet 124,hg 12. Urine culture shows sensitive to ciprofloxacin, cefazolin. Patient already took one dose of cefazolin at ED. Assessment and plan #UTI in background of he on syndrome -Admit to general floor -Continue IV antibiotics cefazolin every 8 hours -IV hydration with one bag -EKG for baseline QTC -IV Zofran for nausea -IV Dilaudid for pain -Tylenol for mild pain and fever -Blood cultures 2 #Von Willebrand disease -No aspirin, No NSAIDS -1 dose of nasal spray of DDAVP -Watch for bleeding -Daily WBC #Full code, dvt prophylaxis just Alps, Dilaudid for pain, regular diet JOSH LEE,HAYDER 06/13/16 1257: Attending MD Review Statement Attending Statement Attending MD Statement: examined this patient, discuss w/resident/PA/VEST BUSHELER, agreed w/resident/PA/VEST BUSHELER, reviewed EMR data (avail), discussed with nursing, amended to note Attending Assessment/Plan: Patient seen and examined. I have reviewed and agree with resident's notes. She presents with worsening bilateral flank pain despite outpatient therapy for her pyelonephritis and analgesic therapy. she fortunately shows no evidence of sepsis. We'll admit to the inpatient medical service and administer intravenous antibiotics and intravenous analgesia. When she begins to improve clinically we 'll transition to oral antibiotics and pain medications and discharged home.
--- NOTE | 2016-06-12 14:50 | NUR ---
LIBORIO Spence IN ROOM TO DISCUSS POC
--- NOTE | 2016-06-12 15:05 | NUR ---
PT MEDICATED WITH ADDITIONAL .5 OF DILAUDID FOR PAIN HOUSE STAFF IN ROOM FOR EVAL.
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
--- NOTE | 2016-06-12 16:47 | NUR ---
ROOM 210-2 READY NURSE INFORMED
--- NOTE | 2016-06-12 17:10 | NUR ---
REPORT GIVEN TO MELISSA BOOKERVENEER REDRIER NOTIFIED
[2016-06-12 17:34] VITALS: BP 116/64
--- NOTE | 2016-06-12 18:37 | NUR ---
NURSING NOTE: PATIENT ARRIVED TO FLOOR VIA STRETCHER WITH DISTRIBUTION FROM ER. PATIENT A/OX3, C/O PAINT O RIGHT FLANK 10/25 AT THIS TIME. STATING THE PAIN IS STARTING TO RETURN. PATIENT REQUESTED SEVERAL PRN MEDICATIONS TO BE ORDER, PIPE INSPECTOR [id number] NOTIFIED. NO ACUTE DISTRESS NOTED AT THIS TIME. IV FLUIDS RUNNING PER ORDER. WILL CONTINUE TO MONITOR.
[2016-06-13 00:17] VITALS: BP 116/64
--- NOTE | 2016-06-13 06:17 | PN- Housestaff ---
LEX LEE,VICENTA 06/13/16 0617: Subjective Follow-up For: Pyelonephritis Subjective: Patient seen and examined at bedside. She reports an improvement in the bilateral flank pain compared to yesterday, currently at about 4 out of 10 after getting the Dilaudid. Still nauseous at times but well controlled with Zofran. No episodes of vomiting since yesterday. Otherwise eating well and moving bowels. No events reported overnight. Review of Systems Constitutional: Reports: see HPI. Objective Last 24 Hrs of Vital Signs/I&O Vital Signs Date Time Temp Pulse Resp B/P Pulse O2 O2 Flow FiO2 Ox Delivery Rate 06/13 1638 98.8 75 24 110/66 98 Room Air 06/13 0809 97.6 67 20 100/72 95 Room Air 06/13 0017 98.0 95 18 116/64 98 Room Air Intake & Output 06/13 1600 06/13 0800 06/13 0000 Intake Total 750 980 225 Output Total Balance 750 980 225 Intake, IV 600 225 Intake, Oral 750 380 Patient 68.039 kg Weight Physical Exam General Appearance: Alert, Oriented X3, Cooperative, No Acute Distress Other Physical Findings: Skin No Rashes, No Breakdown, No Significant Lesion HEENT Atraumatic, PERRLA, EOMI, Mucous Membr. moist/pink Neck Supple, No JVD Cardiovascular Regular Rate, Normal S1, Normal S2, No Murmurs, Gallops, Rubs Lungs Clear to Auscultation, Normal Air Movement Abdomen Normal Bowel Sounds, Soft, No Tenderness, Severe flank pain with CVA tenderness bilaterally Neurological Normal Speech, Strength at 5/5 X4 Ext, Normal Tone, Sensation Intact, Cranial Nerves 3-12 NL Extremities No Clubbing, No Cyanosis, No Edema, Normal Pulses, No Tenderness/ Swelling Current Medications: Current Medications Sig/Angel Start time Last Medication Dose Route Stop Time Status Admin Acetaminophen 650 MG Q4P PRN 06/13 1015 AC PO Acetaminophen 650 MG Q6P PRN 06/12 1530 DC PO Cefazolin Sodium 1,000 MG IQ8 06/12 2200 DC 06/13 IV 0950 Cephalexin 500 MG Q6 06/13 1800 AC PO Cephalexin 500 MG Q12 06/13 1002 DC PO Cyclobenzaprine HCl 5 MG Q6P PRN 06/13 1345 AC 06/13 PO 1357 Desmopressin Acetate 1 SPRAY Q8P PRN 06/12 1830 AC YELITZA Diphenhydramine HCl 12.5 MG Q3P PRN 06/13 0800 CAN PO Diphenhydramine HCl 12.5 MG Q3P PRN 06/13 0800 AC PO Diphenhydramine HCl 50 MG ONCE ONE 06/12 2130 DC 06/12 PO 06/12 2131 2150 Diphenhydramine HCl 25 MG Q6P PRN 06/12 1815 DC 06/13 PO 0458 Hydromorphone HCl 2 MG ONCE ONE 06/13 1645 DC 06/13 PO 06/13 1646 1635 Hydromorphone HCl 4 MG Q6P PRN 06/13 1645 AC PO Hydromorphone HCl 2 MG Q4P PRN 06/13 1530 DC 06/13 PO 1631 Hydromorphone HCl 1 MG Q3P PRN 06/12 1815 DC 06/13 IV 0457 Hydromorphone HCl 0.6 MG Q4-6 PRN PRN 06/12 1530 DC IV Ketorolac 15 MG Q6P PRN 06/13 1015 AC 06/13 Tromethamine IV 1448 Morphine Sulfate 2 MG Q4P PRN 06/13 0800 DC IV Ondansetron HCl 4 MG Q6P PRN 06/12 1530 AC 06/13 IV 0118 Patient Medication 1 ED .STK-MED ONE 06/13 1333 DC Teaching ED 06/13 1334 Phenazopyridine HCl 50 MG Q4 HRS NEEDED PRN 06/13 0800 AC 06/13 PO 1703 Phenazopyridine HCl 100 MG ONCE ONE 06/12 2300 DC 06/13 PO 06/12 2301 0038 Sodium Chloride 1,000 ML Q13H 06/12 1530 DC 06/12 IV 06/13 0429 1624 Tramadol HCl 50 MG Q4P PRN 06/13 1000 AC 06/13 PO 1237 Last 24 Hrs of Lab/Garrison Results Last 24 Hrs of Labs/Mics: Laboratory Tests 06/13/16 0645: Anion Gap 6, Estimated GFR > 60, BUN/Creatinine Ratio 13.3, CBC w Diff NO MAN DIFF REQ, RBC 4.31, MCV 79.0 L, MCH 26.2 L, RDW 17.5 H, MPV 11.2 H, Gran % 22.3 L, Lymphocytes % 36.6, Monocytes % 11.1 H, Eosinophils % 29.6 H, Basophils % 0.4, Absolute Granulocytes 1.2 L, Absolute Lymphocytes 2.0, Absolute Monocytes 0.6, Absolute Eosinophils 1.6, Absolute Basophils 0, PUBS MCHC 33.2 Assessment/Plan Assessment: Ms. Caraballo is a 25-year-old with a PMH significant for immunopancytopenia ( diagnosed in 2002) and Von Willebrand disease on weekly Neupogen and monthly IVIG, recurrent UTIs (3-4 times a year), chronic sinusitis s/p surgery in December 2015 complicated by toxic shock syndrome and migraine who presents with persistent flank pain and dysuria with nausea and vomiting, most likely 2/2 pyelonephritis. # Pyelonephritis In the setting of her CVA tenderness, dysuria with nause and vomiting, CT scan finding is highly suggestive of pyelonephritis. Patient has been on Cipro for 2 days without improvement. Patient was started on IV cefazolin and received a 1L bolus of IVF in ED. Ucx from 06/10/16 growing E.coli (sensitive to Keflex) * Switch cefazolin 1g IV Q8 to Keflex 500mg PO BID * Follow blood cultures - NGTD * Discont IVF as patient is tolerating adequate PO * Pain control with Tramadol for severe pain and Dilaudid for breakthroughs * Control nausea with IV Zofran # Hematologic diseases - vWD and immunopancytopenia Patient carries a h/o immunopancytopenia (diagnosed in 2002) and Von Willebrand disease for which she is on weekly Neupogen and monthly IVIG. She follows with hematologists Dr. Park and Dr. 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 She takes desmopressin as needed for epistaxis. Her CBC on admission is unremarkable. * Cont home med Desmopressin (nasal spray) Q12 PRN * Avoid anticoagulations * Check CBC daily - Regular diet - Moderate pain pathway - DVTppx with ALPS - Full code. Problem List: 1. Pyelonephritis 2. Urinary tract infection 3. Von Willebrand disease Pain Ratin Pain Location: B/L flank Pain Goal: Remain pain free Pain Plan: Moderate pathway Tomorrow's Labs & Rationales: CBC to monitor for pancytopenia HAYDER MORENO MD 06/13/16 1258: Attending MD Review Statement Attending Statement Attending MD Statement: examined this patient, discuss w/resident/PA/LABOR RELATIONS OFFICER, agreed w/resident/PA/LABOR RELATIONS OFFICER, reviewed EMR data (avail), discussed with nursing, discussed with case mgmt, amended to note Attending Assessment/Plan: Patient seen and examined. Lying comfortably in bed not in acute distress. She was texting on her cell phone when we evaluated her. She reports that her pain has improved. Denies nausea vomiting. She reports some dysuria which improves with use of Pyridium. She reports that Dilaudid causes pruritus and she has been requesting Benadryl in addition. She is willing to be transitioned to oral analgesics. On examination she has reduced costovertebral angle tenderness. She remains afebrile hemodynamically stable. She remains without leukocytosis. Recommendations: -Transition patient to tramadol for pain control. -Transition to Keflex complete 14 days of antibiotic therapy for pyelonephritis. -Anticipate discharge tomorrow morning if patient remains stable.
[2016-06-13 08:09] VITALS: BP 100/72
[2016-06-13 08:17] LABS: ABSOLUTE BASOPHIL COUNT 0 /CUMM (0.0-0.2); ABSOLUTE EOSINOPHIL COUNT 1.6 /CUMM (0.0-0.7); ABSOLUTE GRANULOCYTE CT 1.2 /CUMM (1.4-6.5); ABSOLUTE MONOCYTE COUNT 0.6 /CUMM (0.10-0.60); BASOPHIL % 0.4 % (0.0-2.0); EOSINOPHIL % 29.6 % (0-5); GRANULOCYTE % 22.3 % (42.2-75.2); MEAN CORPUSCULAR HGB 26.2 PG (27.0-31.0); MEAN CORPUSCULAR HGB CONC 33.2 G/DL (33.0-37.0); MEAN PLATELET VOLUME 11.2 FL (7.4-10.4); PLATELET COUNT 117 /CUMM (130-400); RBC DISTRIBUTION WIDTH 17.5 % (11.5-14.5); RED BLOOD CELL CT 4.31 /CUMM (4.20-5.40)
[2016-06-13 09:21] LABS: WHITE BLOOD CELL COUNT 5.5 /CUMM (4.8-10.8)
[2016-06-13 16:38] VITALS: BP 110/66
[2016-06-13] MEDS ORDERED: CEPHALEXIN500 M3 PO ×2 (17:02→17:05)
--- NOTE | 2016-06-13 17:06 | Patient Discharge Instructions ---
Discharge Instructions General Discharge Information You were seen/treated for: Urinary infection/pyelonephritis Special Instructions: -Please follow-up with your primary care provider within 7 days after discharge. -We have made changes to your home medications, please read the instructions carefully. -Please come back to the hospital if your symptoms got worse. Diet Continue normal diet: Yes Acute Coronary Syndrome Inclusion Criteria At DC or during hospital stay patient has or had the following: ACS DIAGNOSIS No Discharge Core Measures Meds if any: Prescribed or Continued at Discharge Meds if any: NOT Prescribed or Continued at Discharge Congestive Heart Failure Inclusion Criteria At DC or during hospital stay patient has or had the following: CHF DIAGNOSIS No Discharge Core Measures Meds if any: Prescribed or Continued at Discharge Meds if any: NOT Prescribed or Continued at Discharge Cerebrovascular accident Inclusion Criteria At DC or during hospital stay patient has or had the following: CVA/TIA Diagnosis No Discharge Core Measures Meds if any: Prescribed or Continued at Discharge Meds if any: NOT Prescribed or Continued at Discharge Venous thromboembolism Inclusion Criteria VTE Diagnosis No VTE Type NONE VTE Confirmed by (Test) NONE Discharge Core Measures - Per Current guidelines, there needs to be overlap - treatment for the first 5 days of Warfarin therapy. - If discharged on Warfarin prior to 5 days of - overlap therapy, the patient will need to be - assessed for post discharge needs including - *Post discharge parental anticoagulation - *Warfarin and/or parental anticoagulation education - *Follow up date to check INR post discharge At least 5 days overlap therapy as Inpatient No Meds if any: Prescribed or Continued at Discharge Note: Overlap Therapy is Warfarin and Anticoagulant Meds if any: NOT Prescribed or Continued at Discharge
[2016-06-13 23:20] VITALS: BP 116/65
[2016-06-14 07:31] VITALS: BP 92/54
[2016-06-14 07:46] LABS: ABSOLUTE BASOPHIL COUNT 0.1 /CUMM (0.0-0.2); ABSOLUTE EOSINOPHIL COUNT 1.9 /CUMM (0.0-0.7); ABSOLUTE GRANULOCYTE CT 1.3 /CUMM (1.4-6.5); ABSOLUTE MONOCYTE COUNT 0.6 /CUMM (0.10-0.60); EOSINOPHIL % 32.4 % (0-5); GRANULOCYTE % 22.6 % (42.2-75.2); HEMATOCRIT 36.1 % (37-47); MEAN CORPUSCULAR HGB 25.8 PG (27.0-31.0); MEAN CORPUSCULAR HGB CONC 32.8 G/DL (33.0-37.0); MEAN CORPUSCULAR VOLUME 78.7 FL (81.0-99.0); MEAN PLATELET VOLUME 10.9 FL (7.4-10.4); PLATELET COUNT 124 /CUMM (130-400); RED BLOOD CELL CT 4.59 /CUMM (4.20-5.40); WHITE BLOOD CELL COUNT 5.9 /CUMM (4.8-10.8)
--- NOTE | 2016-06-14 07:58 | PN- Housestaff ---
See Addendum Subjective Follow-up For: UTI/pyelonephritis Subjective: Patient seen and examined at bedside this AM. SHe offers no complaints and reports that her back pain is significantly better today. She is amenable for discharge home this AM. Review of Systems Constitutional: Denies: chills, fever, malaise. EENTM: Denies: blurred vision, visual changes, hearing changes. Cardiovascular: Denies: chest pain, palpitations. Respiratory: Denies: cough, short of breath. Gastrointestinal: Denies: abdominal pain, bloating, constipation, diarrhea. Genitourinary: Denies: frequency. Musculoskeletal: Denies: back pain, joint pain. Skin: Denies: rash. Objective Last 24 Hrs of Vital Signs/I&O Vital Signs Date Time Temp Pulse Resp B/P Pulse O2 O2 Flow FiO2 Ox Delivery Rate 06/14 0731 98.0 82 18 92/54 97 Room Air 06/13 2320 98.6 71 18 116/65 97 Room Air 06/13 1638 98.8 75 24 110/66 98 Room Air Intake & Output 06/14 1600 06/14 0800 06/14 0000 Intake Total 120 120 Output Total Balance 120 120 Intake, Oral 120 120 Physical Exam General Appearance: Alert, Oriented X3, Cooperative, No Acute Distress Other Physical Findings: Skin No Rashes, No Breakdown, No Significant Lesion HEENT Atraumatic, PERRLA, EOMI, Mucous Membr. moist/pink Neck Supple, No JVD Cardiovascular Regular Rate, Normal S1, Normal S2, No Murmurs, Gallops, Rubs Lungs Clear to Auscultation, Normal Air Movement Abdomen Normal Bowel Sounds, Soft, No Tenderness, Severe flank pain with CVA tenderness bilaterally Neurological Normal Speech, Strength at 5/5 X4 Ext, Normal Tone, Sensation Intact, Cranial Nerves 3-12 NL Extremities No Clubbing, No Cyanosis, No Edema, Normal Pulses, No Tenderness/ Swelling Current Medications: Current Medications Sig/Angel Start time Last Medication Dose Route Stop Time Status Admin Acetaminophen 650 MG Q4P PRN 06/13 1015 AC PO Acetaminophen 650 MG Q6P PRN 06/12 1530 DC PO Cefazolin Sodium 1,000 MG IQ8 06/12 2200 DC 06/13 IV 0950 Cephalexin 500 MG Q6 06/13 1800 AC 06/14 PO 0524 Cephalexin 500 MG Q12 06/13 1002 DC PO Cyclobenzaprine HCl 5 MG Q6P PRN 06/13 1345 AC 06/13 PO 1357 Desmopressin Acetate 1 SPRAY Q12 06/13 2200 AC 06/13 YELITZA 2159 Desmopressin Acetate 1 SPRAY Q8P PRN 06/12 1830 DC YELITZA Diphenhydramine HCl 12.5 MG Q3P PRN 06/13 0800 AC PO Hydromorphone HCl 0.6 MG QPM 06/13 2200 DC 06/13 IV 06/13 2201 2210 Hydromorphone HCl 2 MG ONCE ONE 06/13 1645 DC 06/13 PO 06/13 1646 1635 Hydromorphone HCl 4 MG Q6P PRN 06/13 1645 AC 06/14 PO 0911 Hydromorphone HCl 2 MG Q4P PRN 06/13 1530 DC 06/13 PO 1631 Hydromorphone HCl 1 MG Q3P PRN 06/12 1815 DC 06/13 IV 0457 Ketorolac 15 MG Q6P PRN 06/13 1015 AC 06/13 Tromethamine IV 1448 Morphine Sulfate 2 MG Q4P PRN 06/13 0800 DC IV Ondansetron HCl 4 MG .STK-MED ONE 06/13 2200 DC IM 06/13 2201 Ondansetron HCl 4 MG Q6P PRN 06/12 1530 AC 06/13 IV 2206 Patient Medication 1 ED .STK-MED ONE 06/13 1333 DC Teaching ED 06/13 1334 Phenazopyridine HCl 50 MG Q4 HRS NEEDED PRN 06/13 0800 AC 06/14 PO 0911 Ramelteon 8 MG QPM 06/13 2200 AC 06/13 PO 2159 Tramadol HCl 50 MG Q4P PRN 06/13 1000 AC 06/13 PO 1237 Last 24 Hrs of Lab/Garrison Results Last 24 Hrs of Labs/Mics: Laboratory Tests 06/14/16 0636: CBC w Diff MAN DIFF ORDERED, RBC 4.59, MCV 78.7 L, MCH 25.8 L, RDW 17.0 H, MPV 10.9 H, Gran % 22.6 L, Lymphocytes % 33.8, Monocytes % 10.2 H, Eosinophils % 32.4 H, Basophils % 1.0, Absolute Granulocytes 1.3 L, Segmented Neutrophils 29 L, Band Neutrophils 1, Absolute Lymphocytes 2.0, Lymphocytes 36, Monocytes 5, Absolute Monocytes 0.6, Eosinophils 29 H, Absolute Eosinophils 1.9 , Absolute Basophils 0.1, Platelet Estimate DECREASED, Hypochromic-Microcytic 1+ , Poikilocytosis 1+, Anisocytosis 1+, PUBS MCHC 32.8 L Orders Radiology Findings: EXAMINATION: CT ABDOMEN AND PELVIS WITH CONTRAST CLINICAL INFORMATION: Back pain and UTI. COMPARISON: None. TECHNIQUE: Multidetector volumetric imaging was performed of the abdomen and pelvis before and after the IV administration of 97 mL of Omnipaque 320 intravenous contrast. Sagittal and coronal reformatted images were obtained on the technologist's workstation. DLP: 274 mGy-cm. FINDINGS: LUNG BASES: The visualized lung bases are unremarkable. LIVER, GALLBLADDER, AND BILIARY TREE: The liver is normal in size, shape, and attenuation. No focal hepatic lesion or biliary ductal dilatation is present. The gallbladder is unremarkable with no evidence of radiopaque gallstones, gallbladder wall thickening, or obvious pericholecystic inflammatory changes. PANCREAS: Unremarkable. SPLEEN: Unremarkable. ADRENAL GLANDS: Unremarkable. KIDNEYS AND URETERS: Subtle areas of cortical striation in hypoattenuation are present around the calyces in both kidneys, more notably in the upper poles. These findings may represent subtle areas of mild pyelonephritis vs late corticomedullary phase differentiation (a normal appearance of the kidney at a time enhancement). No significant perinephric inflammatory changes. No significant hypoperfusion of the kidneys. No nephrolithiasis or hydronephrosis. Ureters are normal in appearance. BLADDER: Unremarkable. GASTROINTESTINAL TRACT: Stomach, small bowel, and colon are normal in caliber. No bowel wall thickening or surrounding inflammatory changes. Appendix is normal. No intraperitoneal free fluid or free air. ABDOMINAL WALL: Punctate fat-containing umbilical hernia. No bowel involvement. LYMPH NODES: Normal. VASCULAR: Unremarkable. PELVIC VISCERA: The uterus and adnexa are unremarkable. OSSEOUS STRUCTURES: Unremarkable. IMPRESSION: Subtle foci of cortical hypoattenuation in both kidneys which are concerning for early pyelonephritis. It is possible that these are artifactual from the phase of contrast enhancement, though this is less likely. Assessment/Plan Assessment: Ms. Caraballo is a 25-year-old with a PMH significant for immunopancytopenia ( diagnosed in 2002) and Von Willebrand disease on weekly Neupogen and monthly IVIG, recurrent UTIs (3-4 times a year), chronic sinusitis s/p surgery in December 2015 complicated by toxic shock syndrome and migraine who presents with persistent flank pain and dysuria with nausea and vomiting, most likely 2/2 pyelonephritis. # Pyelonephritis In the setting of her CVA tenderness, dysuria with nause and vomiting, CT scan finding is highly suggestive of pyelonephritis. Patient has been on Cipro for 2 days without improvement. Patient was started on IV cefazolin and received a 1L bolus of IVF in ED. Ucx from 06/10/16 growing E.coli (sensitive to Keflex) * Switch cefazolin 1g IV Q8 to Keflex 500mg PO BID (day #3 abx) * Blood cultures cancelled as not received * Discont IVF as patient is tolerating adequate PO * Pain control with Tramadol for severe pain and Dilaudid for breakthroughs * Control nausea with IV Zofran # Hematologic diseases - vWD and immunopancytopenia Patient carries a h/o immunopancytopenia (diagnosed in 2002) and Von Willebrand disease for which she is on weekly Neupogen and monthly IVIG. She follows with hematologists Dr. Park and Dr. 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 She takes desmopressin as needed for epistaxis. Her CBC on admission is unremarkable. * Cont home med Desmopressin (nasal spray) Q12 PRN * Avoid anticoagulations * Check CBC daily- stable and remains at baseline - Regular diet - Moderate pain pathway - DVTppx with ALPS - Full code. Problem List: 1. Pyelonephritis 2. Urinary tract infection 3. Von Willebrand disease Pain Ratin Pain Location: n/a Pain Goal: Remain pain free Pain Plan: Moderate pain pathway Tomorrow's Labs & Rationales: Discharge today.
--- NOTE | 2016-06-16 16:37 | Discharge Summary ---
Visit Information Visit Dates Admission Date: 06/12/16 Discharge Date: 06/14/16 Hospital Course Course Attending Physician: HAYDER MORENO M.D Primary Care Physician: NEW LEE,[facility] Course: Ms. Caraballo is a 25-year-old with a PMH significant for immunopancytopenia ( diagnosed in 2002) and Von Willebrand disease on weekly Neupogen and monthly IVIG, recurrent UTIs (3-4 times a year), chronic sinusitis s/p surgery in December 2015 complicated by toxic shock syndrome and migraine who presents with persistent flank pain and dysuria with nausea and vomiting, most likely 2/2 pyelonephritis. # Pyelonephritis In the setting of her CVA tenderness, dysuria with nause and vomiting, CT scan finding was highly suggestive of pyelonephritis. 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 Patient was started on IV cefazolin 1g IV Q8 and received a 1L bolus of IVF in ED. Ucx from 06/10/16 grew E.coli (sensitive to Keflex). We subsequently transitioned cefazolin to Keflex 500mg PO BID on the second day of admission. She was discharged on 10 days of cephalexin 500mg PO Q6. Pain was controlled with Tramadol and Dilaudid. # Hematologic diseases - vWD and immunopancytopenia Patient carries a h/o immunopancytopenia (diagnosed in 2002) and Von Willebrand disease for which she is on weekly Neupogen and monthly IVIG. She follows with hematologists Dr. Park and Dr. 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 She takes desmopressin as needed for epistaxis. Her CBC during the hopsital stay was unremarkable. She was kept on her home med Desmopressin (nasal spray) Q12 PRN. She was held off any anticoagulations. Allergies: Coded Allergies: sulfamethoxazole (From BACTRIM) (Severe, 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) trimethoprim (From BACTRIM) (Severe, 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) midazolam (From VERSED) (PER PT - MAKES ME VERY EMOTIONAL, EXTREME MOOD SWINGS 09/24/15) Disposition Summary Disposition Principal Diagnosis: Pyelonephritis Additional Diagnosis: N/A Discharge Disposition: home or self care Discharge Instructions General Discharge Information Code Status: Full Code Patient's Diet: Regular Patient's Activity: As tolerated Follow-Up Instructions/Appts: Please follow-up with your primary care provider within 7 days after discharge. We have made changes to your home medications, please read the instructions carefully. Please come back to the hospital if your symptoms got worse. Medications at Discharge Discharge Medications: Stop taking the following medications: Ciprofloxacin HCl (Cipro) 500 MG TABLET ORAL TWICE DAILY Qty = 20 Continue taking these medications: Desmopressin Acetate (Desmopressin Acetate) 10 MCG/0.1 ML SPRAY.PUMP 1 [place] In the nose As Directed as needed for BLEEDING Qty = 5 Comments: Last Taken:06/13/16 Time: 2200 Phenazopyridine HCl (Pyridium) 100 MG TABLET 1 Tablet ORAL THREE TIMES DAILY as needed for DYSURIA Qty = 10 Comments: Last Taken: 06/14/16 Time: 0900 Hydromorphone HCl (Dilaudid) 2 MG TABLET 2 Tablet ORAL Every 4 hours as needed for pain Qty = 20 Comments: Last Taken: 06/14/16 Time: 0900 4 MG (2 TABLETS) Filgrastim (Neupogen) 300 MCG/0.5 ML SYRINGE 1 Inj Inject into fatty tissue EVERY THURSDAY Qty = 2 Comments: DID NOT RECEIVE IN HOSPITAL Butalb/Acetaminophen/Caffeine (Jzcmkk-Qiltnuki-Ycgk 50-325-40) 50 MG-325 MG-40 MG TABLET 1 Tablet ORAL TWICE DAILY as needed for HEADACHE Qty = 45 Comments: DID NOT RECEIVE IN HOSPITAL Start taking the following new medications: Cephalexin (Cephalexin) 500 MG CAPSULE 500 Milligram ORAL EVERY SIX HOURS Days = 10 No Refills Comments: Last Taken: 06/14/16 Time: 0530 NEXT DOSE DUE AT 1200 Copies To: NEW LEE,CHAS Martínez MD Review Statement Documenting Attending: HAYDER MORENO M.D Other Findings: I have reviewed the discharge summary
== END 2016-06-14 09:33 | DRG 463 ==
LOC: ENRESERVDT → ENRESERVTM → ERH 13:07 → ERHI 15:06 → 2NB 15:06 → ENPENDDIS 15:06 → 2NB 17:21
PROVIDERS: Internal Medicine; Physician Assistant; ADMIT Internal Medicine
DX: N12 Tubulo-interstitial nephritis, not specified as acute or chronic (principal); D68.0 Von Willebrand disease; D61.818 Other pancytopenia
CPT/HCPCS: 2NBP; 2NBSP; 36415; 74177; 81001; 81025; 82436; 87040; 87086; 93005; 93010; 96361; 96374; 96375; 96376; J0690; J0696; J1170; J2405

== ENCOUNTER 2016-07-22 20:38 | Emergency (ER) | payer OTHER ==
[~2016-07-22] VITALS: Ht 167.6 cm; Wt 70.3 kg
[~2016-07-22 20:38] MED LIST changes: +BUTALB-ACETAMI1 EACH PO; +CEPHALEXIN500 M3 PO; +NEUPOGEN300 MCG/01 SC
--- NOTE | 2016-07-22 21:38 | ED HEADACHE COMPLAINT ---
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 (Medrol) 4 MG TAB.DS.PK 1 DP PO AD migraine Ondansetron (Zofran Odt) 4 MG TAB.RAPDIS 1 TAB SL TID PRN nausea Oxycodone HCl 5 MG TABLET 1 TAB PO Q6 PRN severe pain Phenazopyridine HCl (Pyridium) 100 MG TABLET 1 TAB PO TID PRN DYSURIA Triage Note: PT TO ED C/O MIGRAINE FOR 3 DAYS. TRIED MULTIPLE MEDS WITH NO RELIEF. STATES IS NOT HER TYPICAL MAGRAINE HAS VISION CHANGES, SEEING BLACK SPOTS AND WAVES" ALSO C/O DIZZINES "I FEEL LIKE I'M WALKING ON A SHIP" VISION CHANGES AND DIZZINESS STARTED AT 1830 THIS EVENING. +N/V WITH MIGRAINE WHICH IS TYPICAL WITH HER MIGRAINES Triage Nurses Notes Reviewed? yes : No Patient currently breastfeeds: No HPI: Patient is a 25-year-old female presents complaining of migraine headache. Headache is continuous for the past 3 days. Pain is typical of her previous migraines. Patient reports that the headache is a pressure sensation that makes a "halo" around her head. Patient took Fioricet yesterday and tramadol today. Mild temporary improvement with tramadol. Associated nausea and photophobia. Patient is currently menstruating. Patient denies fevers, chills, recent trauma. (OLGA SALDANA) Past History Travel History Traveled to [place] past 21 day No Medical History Any Pertinent Medical History? 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 Hx Contributory? No (OLGA SALDANA) Review of Systems Review of Systems Constitutional: Reports: malaise. Denies: chills, fever. Eyes: Reports: photophobia. Ears, Nose, Throat, Mouth: Reports: no symptoms. Respiratory: Reports: no symptoms. Cardiovascular: Reports: no symptoms. Gastrointestinal/Abdominal: Reports: nausea, vomiting. Genitourinary: Reports: no symptoms. Musculoskeletal: Reports: no symptoms. Skin: Reports: no symptoms. Neurological/Psychological: Reports: headache. Hematologic/Endocrine: Reports: bleeding (currently menstruating). Endocrine: Reports: no symptoms. Immunologic/Allergic: Reports: no symptoms. (OLGA SALDANA) Physical Exam Physical Exam General Appearance: alert, awake Head: atraumatic, normal appearance Eyes: Bilateral: normal appearance, PERRL, EOMI. Ears, Nose, Throat: normal pharynx, normal ENT inspection, hearing grossly normal Neck: normal inspection, supple, full range of motion, no midline tenderness Respiratory: no respiratory distress, lungs clear Cardiovascular: regular rate/rhythm Back: normal inspection, normal range of motion Extremities: normal inspection, normal capillary refill, normal range of motion, no edema Psychiatric: awake, alert, oriented x 3 Cranial Nerves: normal hearing, normal speech, PERRL Motor/Sensory: no motor/sensory deficits Skin: intact, normal color, warm/dry Lymphatic: no anterior cervical ubaldo Core Measures Severe Sepsis Present: No Septic Shock Present: No (OLGA SALDANA) Progress Differential Diagnosis: carotid dissection, cluster BONILLA, IC mass/tumor, intracranial Hem., migraine BONILLA, musculoskeletal pain, sinusitis, tension BONILLA, viral cephalgia Plan of Care: Orders Procedure Date/time Status CBC WITHOUT DIFFERENTIAL 07/22 2144 Complete Laboratory Tests 07/22/162154: CBC w Diff NO MAN DIFF REQ, RBC 4.92, MCV 81.3, MCH 26.6 L, RDW 16.9 H, MPV 10.8 H, Gran % 32.7 L, Lymphocytes % 35.4, Monocytes % 13.1 H, Eosinophils % 17.8 H, Basophils % 1.0, Absolute Granulocytes 1.9, Absolute Lymphocytes 2.1, Absolute Monocytes 0.8 H, Absolute Eosinophils 1.0, Absolute Basophils 0.1, PUBS MCHC 32.8 L 07/22/2016 10:22:44 PM: Patient reports improvement in her nausea, continues with headache. Ripley some dizziness and restlessness with administration of phenergan and benadryl. NSAIDS deferred due to hx of von Willebrand. Results of CBC discussed with patient. Morphine ordered. Pain improved after Morphine. No acute neurologic abnormalities on exam. Patient ambulatory with steady gait. (OLGA SALDANA) Departure Departure Disposition: HOME OR SELF CARE Condition: Stable Clinical Impression Primary Impression: Migraine headache Qualifiers: Migraine type: unspecified Status migrainosus presence: with status migrainosus Intractability: intractable Qualified Code: G43.911 - Migraine, unspecified, intractable, with status migrainosus Referrals: CHAS WOLFF MD (PCP/Family) Additional Instructions: Follow up with your primary care doctor for further evaluation. Return to the ER if unable to stay hydrated, fevers, pain uncontrollable or worsening of symptoms. Departure Forms: Customer Survey General Discharge Information Prescriptions: Current Visit Scripts Ondansetron (Zofran Odt) 1 TAB SL TID PRN nausea #10 TAB Methylprednisolone. (Medrol) 1 DP PO AD #1 DP Oxycodone HCl 1 TAB PO Q6 PRN severe pain #6 TAB (JACKSON ESTRADA,OLGA) PA/LICENSED CLINICAL SOCIAL WORKER Co-Sign Statement Statement: ED Attending supervision documentation- [] I saw and evaluated the patient. I have also reviewed all the pertinent lab results and diagnostic results. I agree with the findings and the plan of care as documented in the PA's/LICENSED CLINICAL SOCIAL WORKER's documentation. [X] I have reviewed the ED Record and agree with the PA's/LICENSED CLINICAL SOCIAL WORKER's documentation. [] Additions or exceptions (if any) to the PAs/LICENSED CLINICAL SOCIAL WORKER's note and plan are summarized below: [] (LEONIDAS LEE,MARY GRACE Herrera)
[2016-07-22 22:03] LABS: ABSOLUTE BASOPHIL COUNT 0.1 /CUMM (0.0-0.2); ABSOLUTE GRANULOCYTE CT 1.9 /CUMM (1.4-6.5); ABSOLUTE LYMPH COUNT 2.1 /CUMM (1.2-3.4); ABSOLUTE MONOCYTE COUNT 0.8 /CUMM (0.10-0.60); MEAN CORPUSCULAR HGB 26.6 PG (27.0-31.0); MEAN CORPUSCULAR HGB CONC 32.8 G/DL (33.0-37.0); MEAN CORPUSCULAR VOLUME 81.3 FL (81.0-99.0); MEAN PLATELET VOLUME 10.8 FL (7.4-10.4); PLATELET COUNT 141 /CUMM (130-400); RBC DISTRIBUTION WIDTH 16.9 % (11.5-14.5); RED BLOOD CELL CT 4.92 /CUMM (4.20-5.40); WHITE BLOOD CELL COUNT 5.8 /CUMM (4.8-10.8)
[2016-07-22 22:18] LABS: EOSINOPHIL % 17.8 % (0-5); GRANULOCYTE % 32.7 % (42.2-75.2)
[2016-07-22] MEDS ORDERED: MEDROL4 M2 PO (22:29)
[2016-07-22] MEDS ORDERED: ZOFRAN ODT4 M1 SL (22:29)
[2016-07-22] MEDS ORDERED: OXYCODONE HCL5 M1 PO (22:29)
[2016-07-22 23:06] VITALS: BP 136/88
== END 2016-07-22 23:06 ==
LOC: ERH 20:38
PROVIDERS: Physician Assistant
DX: G43.909 Migraine, unspecified, not intractable, without status migrainosus (principal)
CPT/HCPCS: 96374; 96375; J1200; J2550; J2930

== ENCOUNTER 2016-08-19 17:04 | Emergency (ER) | payer OTHER ==
[~2016-08-19] VITALS: Ht 167.6 cm; Wt 72.6 kg
[~2016-08-19 17:04] MED LIST changes: +MEDROL4 M2 PO; +OXYCODONE HCL5 M1 PO; +ZOFRAN ODT4 M1 SL
--- NOTE | 2016-08-19 18:22 | ED GI/GU/ABDOMINAL COMPLAINT ---
History of Present Illness General Chief Complaint: Nausea, Vomiting, Diarrhea Stated Complaint: SENT BY SEAN VILLARREAL FOR EVAL N/V/D , 4 WKS PREG Source: patient, old records Exam Limitations: no limitations Vital Signs & Intake/Output Vital Signs & Intake/Output Vital Signs Date Time Temp Pulse Resp B/P Pulse O2 O2 Flow FiO2 Ox Delivery Rate 08/197 84 16 122/70 99 Room Air 08/19 1858 98.1 80 18 122/72 98 Room Air 08/19 1853 98 Room Air 08/19 1711 96.9 93 16 124/81 98 Room Air ED Intake and Output 08/20 0000 08/19 1200 Intake Total 2000 Output Total Balance 2000 Intake, IV 2000 Patient 160 lb Weight Allergies Coded Allergies: sulfamethoxazole (From BACTRIM) (Severe, 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) trimethoprim (From BACTRIM) (Severe, 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) midazolam (From VERSED) (PER PT - MAKES ME VERY EMOTIONAL, EXTREME MOOD SWINGS 09/24/15) tranexamic acid (From LYSTEDA) (ANAPHYLAXIS 08/19/16) Reconcile Medications Aminocaproic Acid (Amicar) (Unknown Strength) SOLUTION (Unknown Dose) AD AD PRN BLEEDING GUMS (Reported) Aminocaproic Acid (Amicar) (Unknown Strength) TABLET (Unknown Dose) PO AD PRN BLEEDING (Reported) Butalb/Acetaminophen/Caffeine (Ybrkzo-Omjntlwh-Jwxw 50-325-40) 50 MG-325 MG-40 MG TABLET 1 TAB PO BID PRN HEADACHE (Reported) Desmopressin Acetate 10 MCG/0.1 ML SPRAY.PUMP 1 SPRAY YELITZA AD PRN BLEEDING ( Reported) Epinephrine (Epipen 2-Demian) 0.3 MG/0.3 ML AUTO.INJCT 0.3 MG IM AD PRN ALLERGIC REACTION (Reported) Filgrastim (Neupogen) 300 MCG/0.5 ML SYRINGE 1 INJ SC QMON UNKNOWN (Reported) [IVIG] AUTO IMMUNE PANCYTOPENIA (Reported) Ondansetron (Zofran Odt) 4 MG TAB.RAPDIS 1 TAB SL TID PRN NAUSEA Vit No.130/Iron/FA ( Tablet) 27 MG IRON-800 MCG TABLET 1 TAB PO DAILY (Reported) Triage Note: PT STATES SHE HAS HAD DIARRHEA SINCE THURSDAY EVENING. PT STATES TODAY SHE HAD BLOOD ON THE TISSUE WHEN SHE WIPED BUT STATES THAT SHE IS VERY SORE AND RAW AROUND HER ANUS. PT WAS TOLD BY HER OBGYN TO COME TO ED FOR DEHYDRATION BECAUSE SHE IS ABOUT 4 WEEKS Triage Nurses Notes Reviewed? yes LMP (ages 10-50): 07/17/16 ? Y Is pt currently ? No Onset: Abrupt Duration: day(s): (4), constant Timing: recent history Quality/Severity: cramping Severity Numbers: 5 Location: generalized abdomen Radiation: no radiation Activities at Onset: none No Modifying Factors: none Associated Symptoms: diarrhea, nausea/vomiting HPI: 25-year-old female abruptly 4 weeks presents to the emergency room complaining of nausea vomiting diarrhea for the past 4 days. Positive sick contacts with similar symptoms. She reports a cramping generalized nonradiating abdominal pain prior to these episodes. She denies any black or bloody stools. She denies any vaginal bleeding or discharge. She states she had a beta hCG performed yesterday that was 35 however pt has not had a confirmed IUP by ultrasound yet. She was sent here by her OB for IV fluids. Patient denies fever chills chest pain shortness of breath (LIBORIO CÁRDENAS) Past History Travel History Traveled to [place] past 21 day No Medical History Any Pertinent Medical History? 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 Hx Contributory? No (LIBORIO CÁRDENAS) Review of Systems Review of Systems Constitutional: Reports: see HPI. All Other Systems: Reviewed and Negative Comments Review of systems: See HPI, All other systems negative. Constitutional, no chills no fever, no malaise HEENT: No visual changes no sore throat no congestion, Cardiovascular: No chest pain , no palpitation , Skin, no rashes, no change in skin Respiratory: No dyspnea no cough no sputum GI: See HPI : No dysuria Muscle skeletal: No joint pain, no back pain, no neck pain, Neurologic: No numbness, no headache Psych: No stress Heme/endocrine: No bruising no bleeding Immunology: No lymphadenopathy (LIBORIO CÁRDENAS) Physical Exam Physical Exam General Appearance: well developed/nourished, alert, awake Gastrointestinal: normal bowel sounds, soft Comments: Well-developed well-nourished person in no acute distress HEENT: Normal EENT exam; PERRL, EOMI. HEAD is atraumatic. moist mucous membranes. Neck: Supple, , normal range of motion without pain or tenderness Back: Nontender, no CVA tenderness. Full range of motion Cardiovascular: Regular rate and rhythms no murmurs rubs Respiratory: No respiratory distress. Patient speaking in full complete sentences. Breath sounds clear to auscultation bilaterally: NO W/R/R Abdomen: Soft, nontender nondistended, no appreciable organomegaly. Normal bowel sounds. No rebound/guarding, Extremity: No edema, full range of motion of extremities Neuro: Alert oriented x3, motor sensory normal, There were no obvious focal neurologic abnormalities. Skin: No appreciable rash on exposed skin, skin is warm and dry. Psych: Mood and affect is normal, memory and judgment is normal. Core Measures ACS in differential dx? No Severe Sepsis Present: No Septic Shock Present: No (LIBORIO CÁRDENAS) Progress Differential Diagnosis: INTRAUTERINE ECTOPIC DEHYDRATION ELECTROLYTE ABNORMALITY COLITIS THREATENED ab Plan of Care: Orders Procedure Date/time Status Saline Lock 08/19 1837 Active HUMAN BETA HCG TITRE 08/19 1837 Complete COMPREHENSIVE METABOLIC PANEL 08/19 1837 Complete CBC WITHOUT DIFFERENTIAL 08/19 1837 Complete Laboratory Tests 08/19/16 185: Urine Color Cancelled, Urine Clarity Cancelled, Urine pH Cancelled, Ur Specific [place] Cancelled, Urine Protein Cancelled, Urine Ketones Cancelled, Urine Nitrite Cancelled, Urine Bilirubin Cancelled, Urine Urobilinogen Cancelled, Ur Leukocyte Esterase Cancelled, Ur Microscopic Cancelled, Urine Hemoglobin Cancelled, Urine Glucose Cancelled 08/19/16 185: Anion Gap 13, Estimated GFR > 60, BUN/Creatinine Ratio 21.4, Glucose 91, Calcium 10.0, Total Bilirubin 0.4, AST 24, ALT 34, Alkaline Phosphatase 82, Total Protein 8.0, Albumin 4.9, Globulin 3.1, Albumin/Globulin Ratio 1.6, Beta HCG, Quant 81.7, CBC w Diff MAN DIFF ORDERED, RBC 4.92, MCV 82.5, MCH 27.3, RDW 15.3 H, MPV 10.6 H, Gran % 26.7 L, Lymphocytes % 20.3 L, Monocytes % 8.1, Eosinophils % 44.5 H, Basophils % 0.4, Absolute Granulocytes 2.5, Absolute Lymphocytes 1.9, Absolute Monocytes 0.8 H, Absolute Eosinophils 4.2, Absolute Basophils 0, Platelet Estimate ADEQUATE, Normochromic RBCs VERIFIED, Anisocytosis 1+, PUBS MCHC 33.0 Labs ordered old records reviewed IV fluids Zofran 4 IV case discussed with Dr. Kramer Patient seen and evaluated by Dr. KRAMER agrees with plan. I discussed with the patient at length all of their results. I had an extensive conversation regarding need for close follow up with their primary care physician this week as well as return precautions patient's hCG is trending upwards from yesterday. I answered all of their questions, they feel comfortable with the plan and follow-up care. Per prescription for Zofran provided I discussed the medications that they will receive with the patient. I gave them signs and symptoms that could indicate an adverse reaction. I have advised them to limit their activities until they can see how they respond to the medication. (SILVESTRE ESTRADA,LIBORIO) Diagnostic Imaging: Viewed by Me: Ultrasound. Discussed w/RAD: Ultrasound. Radiology Impression: PATIENT: ALEXUS RAMIREZ PRESENT AGE: 25 PATIENT ACCOUNT NO: [id number] : 90 LOCATION: [facility] ORDERING PHYSICIAN: LIBORIO ESTRADA SERVICE DATE: 08/19/16 EXAM TYPE: US - US TRANSVAG EXAMINATION: US TRANSVAGINAL CLINICAL INFORMATION: Nausea. Vomiting. Diarrhea for 4 days. LMP 07/17/2016. This would correspond to a gestational age today of 4 weeks 5 days. DASHAWN based on these dates would be 11/2016. Serum beta subunit pending. 4 para 1 AB 2 COMPARISON: None TECHNIQUE: Transabdominal and endovaginal examination of the pelvis with grayscale and color Doppler imaging. Pulse-wave Doppler interrogation and spectral analysis were added for evaluation of the adnexa. FINDINGS: Uterus is normal in size and shape. It is anteverted. The cervical canal measures 3.4 cm. In the high portion of the endometrial canal there is some probable decidual thickening. A tiny fluid-filled structure is seen within this area of increased echogenicity. Image 24/. Follow-up examination is recommended to document growth. Both ovaries are normal in size and echo appearance. The right ovary contains immature follicles and measures 2.5 x 1.5 x 1.8 cm. The left ovary measures 3.8 x 2.6 x 2.8 cm. A small amount of free fluid fluid is seen in the cul-de-sac. No abnormal pelvic masses are demonstrated on this exam. IMPRESSION: Question of a small gestational sac as discussed above. Too early to date if . Recommend follow-up examination to document growth. DICTATED BY: ZACK AYON MD DATE/TIME DICTATED:08/19/162000 PROTOTYPER: VICKI DATE/TIME TRANSCRIBED:08/19/162000 CONFIDENTIAL, DO NOT COPY WITHOUT APPROPRIATE AUTHORIZATION. <Electronically signed in Other Vendor System> SIGNED BY: ZACK AYON MD 08/19/162019 Initial ED EKG: none (LIBORIO CÁRDENAS) Departure Departure Time of Disposition: 2038 Disposition: HOME OR SELF CARE Condition: Stable Clinical Impression Primary Impression: Nausea vomiting and diarrhea Secondary Impressions: IUP (intrauterine ), incidental Referrals: CHAS WOLFF MD (PCP/Family) Additional Instructions: Follow-up as previously scheduled for repeat blood work tomorrow follow up with your WATER RESOURCE PROJECT MANAGER this week. Zofran as needed for nausea bland diet clear liquids advance as tolerated return anytime sooner with any concerns Departure Forms: Customer Survey General Discharge Information Prescriptions: Current Visit Scripts Ondansetron (Zofran Odt) 1 TAB SL TID PRN NAUSEA #10 TAB (LIBORIO CÁRDENAS) PA/VICE PRESIDENT OF SALES Co-Sign Statement Statement: ED Attending supervision documentation- [] I saw and evaluated the patient. I have also reviewed all the pertinent lab results and diagnostic results. I agree with the findings and the plan of care as documented in the PA's/VICE PRESIDENT OF SALES's documentation. [X] I have reviewed the ED Record and agree with the PA's/VICE PRESIDENT OF SALES's documentation. [] Additions or exceptions (if any) to the PAs/VICE PRESIDENT OF SALES's note and plan are summarized below: [] (CHRIS LEE,VINICIO)
[2016-08-19 19:03] LABS: ABSOLUTE BASOPHIL COUNT 0 /CUMM (0.0-0.2); ABSOLUTE EOSINOPHIL COUNT 4.2 /CUMM (0.0-0.7); ABSOLUTE GRANULOCYTE CT 2.5 /CUMM (1.4-6.5); ABSOLUTE LYMPH COUNT 1.9 /CUMM (1.2-3.4); ABSOLUTE MONOCYTE COUNT 0.8 /CUMM (0.10-0.60); BASOPHIL % 0.4 % (0.0-2.0); EOSINOPHIL % 44.5 % (0-5); GRANULOCYTE % 26.7 % (42.2-75.2); HEMATOCRIT 40.6 % (37-47); MEAN CORPUSCULAR HGB 27.3 PG (27.0-31.0); MEAN CORPUSCULAR VOLUME 82.5 FL (81.0-99.0); MEAN PLATELET VOLUME 10.6 FL (7.4-10.4); PLATELET COUNT 141 /CUMM (130-400); RBC DISTRIBUTION WIDTH 15.3 % (11.5-14.5); RED BLOOD CELL CT 4.92 /CUMM (4.20-5.40); WHITE BLOOD CELL COUNT 9.5 /CUMM (4.8-10.8)
--- NOTE | 2016-08-19 20:20 | ULTRASOUND REPORT ---
EXAMINATION: US TRANSVAGINAL CLINICAL INFORMATION: Nausea. Vomiting. Diarrhea for 4 days. LMP 07/17/2016. This would correspond to a gestational age today of 4 weeks 5 days. DASHAWN based on these dates would be 04/23/2017. Serum beta subunit pending. 4 para 1 AB 2 COMPARISON: None TECHNIQUE: Transabdominal and endovaginal examination of the pelvis with grayscale and color Doppler imaging. Pulse-wave Doppler interrogation and spectral analysis were added for evaluation of the adnexa. FINDINGS: Uterus is normal in size and shape. It is anteverted. The cervical canal measures 3.4 cm. In the high portion of the endometrial canal there is some probable decidual thickening. A tiny fluid-filled structure is seen within this area of increased echogenicity. Image . Follow-up examination is recommended to document growth. Both ovaries are normal in size and echo appearance. The right ovary contains immature follicles and measures 2.5 x 1.5 x 1.8 cm. The left ovary measures 3.8 x 2.6 x 2.8 cm. A small amount of free fluid fluid is seen in the cul-de-sac. No abnormal pelvic masses are demonstrated on this exam. IMPRESSION: Question of a small gestational sac as discussed above. Too early to date if . Recommend follow-up examination to document growth.
[2016-08-19] MEDS ORDERED: AMICAR AD (20:24)
[2016-08-19] MEDS ORDERED: AMICAR500 MG PO (20:24)
[2016-08-19] MEDS ORDERED: EPIPEN 2-P0.3 MG/0.3 IM (20:24)
[2016-08-19] MEDS ORDERED: PRENATAL TABLE1 EAC2 PO (20:26)
[2016-08-19] MEDS ORDERED: IVIG IV (20:27)
[2016-08-19] MEDS ORDERED: ZOFRAN ODT4 M1 SL (20:40)
[2016-08-19 20:47] VITALS: BP 122/70
== END 2016-08-19 20:48 ==
LOC: ERH 17:04
PROVIDERS: Physician Assistant Medical
DX: O21.9 Vomiting of pregnancy, unspecified (principal)
CPT/HCPCS: 76817; 96361; 96374; J2405

== ENCOUNTER 2016-08-24 09:58 | Emergency (ER) | payer OTHER ==
[~2016-08-24] VITALS: Ht 167.6 cm; Wt 72.6 kg
[~2016-08-24 09:58] MED LIST changes: +AMICAR AD; +AMICAR500 MG PO; +EPIPEN 2-P0.3 MG/0.3 IM; +IVIG IV; +PRENATAL TABLE1 EAC2 PO
[2016-08-24 10:10] VITALS: BP 131/82
[2016-08-24 10:53] LABS: ABSOLUTE BASOPHIL COUNT 0 /CUMM (0.0-0.2); ABSOLUTE EOSINOPHIL COUNT 3.2 /CUMM (0.0-0.7); ABSOLUTE GRANULOCYTE CT 0.8 /CUMM (1.4-6.5); ABSOLUTE LYMPH COUNT 1.5 /CUMM (1.2-3.4); ABSOLUTE MONOCYTE COUNT 0.5 /CUMM (0.10-0.60); BASOPHIL % 0.8 % (0.0-2.0); EOSINOPHIL % 52.4 % (0-5); HEMATOCRIT 40.5 % (37-47); MEAN CORPUSCULAR HGB 27.1 PG (27.0-31.0); MEAN CORPUSCULAR HGB CONC 32.9 G/DL (33.0-37.0); MEAN CORPUSCULAR VOLUME 82.5 FL (81.0-99.0); MEAN PLATELET VOLUME 10.3 FL (7.4-10.4); PLATELET COUNT 117 /CUMM (130-400); RBC DISTRIBUTION WIDTH 15.4 % (11.5-14.5); RED BLOOD CELL CT 4.91 /CUMM (4.20-5.40)
[2016-08-24 10:58] LABS: PT 12.1 SEC (9.4-12.5); PTT 30 SEC (25-37)
[2016-08-24 11:04] LABS: GRANULOCYTE % 12.8 % (42.2-75.2)
--- NOTE | 2016-08-24 11:52 | ED GI/GU/ABDOMINAL COMPLAINT ---
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) midazolam (From VERSED) (PER PT - MAKES ME VERY EMOTIONAL, EXTREME MOOD SWINGS 08/24/16) tranexamic acid (From LYSTEDA) (ANAPHYLAXIS 08/24/16) Reconcile Medications Aminocaproic Acid (Amicar) (Unknown Strength) SOLUTION (Unknown Dose) AD AD PRN BLEEDING GUMS (Reported) Aminocaproic Acid (Amicar) (Unknown Strength) TABLET (Unknown Dose) PO AD PRN BLEEDING (Reported) Butalb/Acetaminophen/Caffeine (Zxrgmh-Rcferfja-Zvwk 50-325-40) 50 MG-325 MG-40 MG TABLET 1 TAB PO BID PRN HEADACHE (Reported) Desmopressin Acetate 10 MCG/0.1 ML SPRAY.PUMP 1 SPRAY YELITZA AD PRN BLEEDING ( Reported) Epinephrine (Epipen 2-Demian) 0.3 MG/0.3 ML AUTO.INJCT 0.3 MG IM AD PRN ALLERGIC REACTION (Reported) Filgrastim (Neupogen) 300 MCG/0.5 ML SYRINGE 1 INJ SC QMON UNKNOWN (Reported) [IVIG] AUTO IMMUNE PANCYTOPENIA (Reported) Ondansetron (Zofran Odt) 4 MG TAB.RAPDIS 1 TAB SL TID PRN NAUSEA Vit No.130/Iron/FA ( Tablet) 27 MG IRON-800 MCG TABLET 1 TAB PO DAILY (Reported) Triage Note: TRIAGE: PT TO ER C/C VAGINAL BLEEDING SINCE THURSDAY, STATES HAS BEEN LIGHT BLEEDING BUT HAS HAD "A LOT OF SMALL CLOTS" TODAY. PT CURRENTLY , ?4 WEEKS. LMP 07/17/2016. HAD +HOME TEST ON THURSDAY AND THEN HAD BLOOD TESTS DONE THURSDAY, THURSDAY AND THURSDAY. TUESDAYS BLOOD WORK DONE HERE PT WAS BEING SEEN FOR GI S/S. THU AND THU WAS DONE WITH HOME DESIGNER R/T VAGINAL BLEEDING. LEVELS HAVE CONTINUED TO RISE, LAST LEVEL WAS 379. SPOKE WITH "MY LAST REPAIRER HELPER" TODAY WHO ADVISED COMING TO ER WHEN HER PRIMARY HOME DESIGNER OFFICE (DR GODWIN) HAD TOLD HER "YOU'RE PROBABLY MISCARRYING AND WE'LL SEE YOU IN THE OFFICE ON THURSDAY". Triage Nurses Notes Reviewed? yes ? y Is pt currently ? No HPI: This patient is a G3A1P1 female who presented to the emergency department today sent in by her HOME DESIGNER, Dr. Cerna, for evaluation of vaginal bleeding. The patient reported that she recently had a positive home test. She was seen here in the emergency department last week for evaluation of dehydration from a gastrointestinal bug. The patient reported that at that time they did a vaginal ultrasound. She reported that the injection molding technician was, "not very gentle," and immediately after started having some vaginal bleeding. She reported that the bleeding is only when she wipes. However, she reported that she has been having bright red clots which have been consistent since this ultrasound. Her HOME DESIGNER told her that she may be having a miscarriage, but the patient reported that she has von Willebrand's disease and whenever she believes, she bleeds heavily and has a hard time clotting. The patient thinks that the clots be coming from the ultrasound. She reported that her hCG levels have been steadily rising. She was told by her high-risk HOME DESIGNER at [facility] to come to the emergency department today for evaluation. She reported that she has been having diarrhea, but reported that this is from her GI bug over the last week. No blood in the stool. She reported some upper abdominal cramping from the virus, but no lower abdominal pain or cramping. She denied any fevers, chills, chest pain, or difficulty breathing. (RAMÍREZ CROSS,ISRAEL) Past History Travel History Traveled to [place] past 21 day No Medical History Any Pertinent Medical History? see below for history Neurological: migraine EENT: NONE Cardiovascular: NONE Respiratory: PNA Gastrointestinal: NONE Hepatic: NONE Renal: NONE Musculoskeletal: NONE Psychiatric: NONE Endocrine: NONE Blood Disorders: VON WILLDEBRAUNS AUTOIMMUNE PANCYTOPENIA Cancer(s): NONE VETERINARIAN ASSISTANT/Reproductive: HPV, OVARIAN CYSTS History of MRSA: No History of VRE: No History of CDIFF: No Surgical History Surgical History: Sinus surgery C SECTION 2015 LASER CERVIX WISDOM TEETH REMOVED Psychosocial History Who do you live with Patient/Self What is your primary language Prydein[place] Tobacco Use: Never used ETOH Use: occasional use Illicit Drug Use: denies illicit drug use Family History Family History, If Any: FATHER FH: diabetes mellitus, Onset: Unknown. Hx Contributory? No (ISRAEL ELMORE PA-C) Review of Systems Review of Systems Constitutional: Reports: no symptoms. EENTM: Reports: no symptoms. Respiratory: Reports: no symptoms. Cardiovascular: Reports: no symptoms. GI: Reports: see HPI. Genitourinary: Reports: see HPI. Musculoskeletal: Reports: no symptoms. Skin: Reports: no symptoms. Neurological/Psychological: Reports: no symptoms. All Other Systems: Reviewed and Negative (ISRAEL ELMORE PA-C) Physical Exam Physical Exam Gastrointestinal: normal bowel sounds, soft, non-tender, no organomegaly, NO REBOUND OR GUARDING. nO PERITONEAL SIGNS Comments: Well-developed well-nourished person in no acute distress HEENT: Normal EENT exam, head normocephalic/atraumatic, moist mucous membranes Neck: Supple, no lymphadenopathy Back: Normal gait Cardiovascular: Regular rate and rhythm with no murmurs, rubs, or gallops Respiratory: No respiratory distress. Speaking in full sentences Extremity: Normal equal pulses Neuro: Alert oriented x3, cranial nerves II through XII grossly intact. Skin: No appreciable rash on exposed skin, skin is warm and dry. Psych: Mood and affect is normal Core Measures ACS in differential dx? No Severe Sepsis Present: No Septic Shock Present: No (ISRAEL ELMORE PA-C) Progress Differential Diagnosis: ectopic , endometritis, hemorrhoids, intrauterine , kidney stone, PID/cervicitis, threatened AB, UTI/pyelo Plan of Care: Orders Procedure Date/time Status PARTIAL THROMBOPLASTIN TIME 08/24 1026 Complete PROTHROMBIN TIME 08/24 1026 Complete HUMAN BETA HCG TITRE 08/24 1026 Complete COMPREHENSIVE METABOLIC PANEL 08/24 1026 Complete CBC WITHOUT DIFFERENTIAL 08/24 1026 Complete TYPE & SCREEN (NOT X-MATCH) 08/24 1026 Complete Laboratory Tests 08/24/16 1143: Factor VIII Cancelled 08/24/16 1042: Anion Gap 10, Estimated GFR > 60, BUN/Creatinine Ratio 18.3, Glucose 88, Calcium 9.4, Total Bilirubin 0.5, AST 19, ALT 33, Alkaline Phosphatase 71, Total Protein 7.4, Albumin 4.6, Globulin 2.8, Albumin/Globulin Ratio 1.6, Beta HCG, Quant 699.2, PT 12.1, INR 1.15, APTT 30, CBC w Diff MAN DIFF ORDERED, RBC 4.91, MCV 82.5, MCH 27.1, RDW 15.4 H, MPV 10.3, Gran % 12.8 L, Lymphocytes % 25.3, Monocytes % 8.7, Eosinophils % 52.4 H, Basophils % 0.8, Absolute Granulocytes 0.8 L, Absolute Lymphocytes 1.5, Absolute Monocytes 0.5, Absolute Eosinophils 3.2, Absolute Basophils 0, Platelet Estimate DECREASED, Anisocytosis 1+, PUBS MCHC 32.9 L Initial ED EKG: none Comments: 08/24/2016 11:52:24 AM: The patient is refusing transvaginal ultrasound unless her hCG level is greater than 1000. 08/24/2016 12:12:15 PM: I spoke with this patient's HOME DESIGNER at [facility] for high risk pregnancies. I updated him on the results of the laboratory studies. Platelet count 117. HCG level 699. He reported that this patient should follow-up with her primary HOME DESIGNER. 08/24/2016 12:25:01 PM: I discussed this patient with on-call HOME DESIGNER, Dr. Hunter. She reported that this patient should be told to rest and avoid any strenuous activity. She is going to follow-up in the office. (ISRAEL ELMORE PA-C) Departure Departure Disposition: HOME OR SELF CARE Condition: Stable Clinical Impression Primary Impression: Vaginal bleeding Referrals: CHAS WOLFF MD (PCP/Family) Additional Instructions: Please call your HOME DESIGNER to schedule a follow-up appointment. Avoid any strenuous activity or heavy lifting. Please rest. Return for any worsening symptoms or concerns. Departure Forms: Customer Survey General Discharge Information (ISRAEL ELMORE PA-C) PA/SALES ACCOUNT COORDINATOR Co-Sign Statement Statement: ED Attending supervision documentation- [] I saw and evaluated the patient. I have also reviewed all the pertinent lab results and diagnostic results. I agree with the findings and the plan of care as documented in the PA's/SALES ACCOUNT COORDINATOR's documentation. [X] I have reviewed the ED Record and agree with the PA's/SALES ACCOUNT COORDINATOR's documentation. [] Additions or exceptions (if any) to the PAs/SALES ACCOUNT COORDINATOR's note and plan are summarized below: [] (CHRIS LEE,VINICIO)
== END 2016-08-24 12:29 ==
LOC: ERH 09:58
PROVIDERS: Physician Assistant
DX: O20.9 Hemorrhage in early pregnancy, unspecified (principal)
CPT/HCPCS: 85246

== ENCOUNTER 2016-10-16 20:33 | Emergency (ER) | payer OTHER ==
--- NOTE | 2016-10-16 22:17 | ED INFLUENZA/URI COMPLAINT ---
History of Present Illness General Chief Complaint: Nausea, Vomiting, Diarrhea Stated Complaint: +NV, 12 WEEKS Source: patient, old records Exam Limitations: no limitations Vital Signs & Intake/Output Vital Signs & Intake/Output Vital Signs Date Time Temp Pulse Resp B/P B/P Pulse O2 O2 Flow FiO2 Mean Ox Delivery Rate 10/16 2348 98.3 108 18 109/68 95 Room Air 10/16 2236 99.1 116 18 115/66 94 Room Air 10/16 2213 98 Room Air 10/16 2157 97 10/16 2043 98.0 118 22 127/83 99 ED Intake and Output 10/17 0000 10/16 1200 Intake Total 1000 Output Total Balance 1000 Intake, IV 1000 Patient 154 lb Weight Allergies Coded Allergies: sulfamethoxazole (From BACTRIM) (Severe, 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) trimethoprim (From BACTRIM) (Severe, 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) midazolam (From VERSED) (PER PT - MAKES ME VERY EMOTIONAL, EXTREME MOOD SWINGS 08/24/16) tranexamic acid (From LYSTEDA) (ANAPHYLAXIS 08/24/16) Reconcile Medications Aminocaproic Acid (Amicar) (Unknown Strength) SOLUTION (Unknown Dose) AD AD PRN BLEEDING GUMS (Reported) Aminocaproic Acid (Amicar) (Unknown Strength) TABLET (Unknown Dose) PO AD PRN BLEEDING (Reported) Amoxicillin/Clavulanate Potass (Amox-Clav 875-125 MG Tablet) 875 MG-125 MG TABLET 1 TAB PO BID ANTIBIOTIC, INFECTION (Reported) Butalb/Acetaminophen/Caffeine (Dkiygj-Ppttmnzp-Rumz 50-325-40) 50 MG-325 MG-40 MG TABLET 1 TAB PO BID PRN HEADACHE (Reported) Desmopressin Acetate 10 MCG/0.1 ML SPRAY.PUMP 1 SPRAY YELITZA AD PRN BLEEDING ( Reported) Epinephrine (Epipen 2-Demian) 0.3 MG/0.3 ML AUTO.INJCT 0.3 MG IM AD PRN ALLERGIC REACTION (Reported) Filgrastim (Neupogen) 300 MCG/0.5 ML SYRINGE 1 INJ SC QMON UNKNOWN (Reported) [IVIG] AUTO IMMUNE PANCYTOPENIA (Reported) Ondansetron (Zofran Odt) 4 MG TAB.RAPDIS 1 TAB SL TID PRN NAUSEA Vit No.130/Iron/FA ( Tablet) 27 MG IRON-800 MCG TABLET 1 TAB PO DAILY (Reported) Triage Note: PER PT 12 WEEKS G3A1P1 PER PT COUGH, RHINO VIRUS PER PT CANT STOP COUGHING ALSO HAVE A SINUS INFECTION, CANT STOP COUGHING AND NOW VOMITING UNABLE TO KEEP FLUIDS DOWN, APPEARS WELL HYDRATED DRY COUGH NOTED. PT ON ANTIBIOTICS Triage Nurses Notes Reviewed? yes Onset: Last week Duration: day(s):, continues in ED, getting worse Timing: recent history Severity: moderate, severe Prior Episodes/Possible Cause: illness exposure No Modifying Factors: none Associated Symptoms: cough, facial pain, muscle aches, nasal congestion, nasal drainage, sinus infection LMP (ages 10-50): 13 weeks age gestation : Yes Patient currently breastfeeds: No HPI: 5 days prior to admission patient complains of nasal congestion productive cough sinus pressure chills. She was started on amoxicillin improved sinus pressure but developing hacking cough with posttussive emesis unable to eat or drink. She denies fever chest pain abdominal pain dysuria rash bleeding. Past History Travel History Traveled to [place] past 21 day No Medical History Any Pertinent Medical History? 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 Hx Contributory? No Review of Systems Review of Systems Constitutional: Reports: see HPI, chills, malaise. EENTM: Reports: see HPI, nasal congestion. Respiratory: Reports: see HPI, cough. Cardiovascular: Reports: no symptoms. GI: Reports: see HPI, vomiting. Genitourinary: Reports: no symptoms. Musculoskeletal: Reports: no symptoms. Skin: Reports: no symptoms. Neurological/Psychological: Reports: no symptoms. Hematologic/Endocrine: Reports: no symptoms. Immunologic/Allergic: Reports: no symptoms. All Other Systems: Reviewed and Negative Physical Exam Physical Exam General Appearance: well developed/nourished, alert, awake, anxious, moderate distress Head: normal appearance, tenderness (maxillary sinus) Eyes: Bilateral: normal appearance, PERRL, EOMI. Ears, Nose, Throat: moist mucous membrane, hearing grossly normal, Tympanic normal, nasal congestion, nasal drainage, pharyngeal erythema Neck: normal inspection, supple, full range of motion, trachea midline, lymphadenopathy (R), lymphadenopathy (L), no midline tenderness Respiratory: chest non-tender, decreased breath sounds Cardiovascular: regular rate/rhythm, normal peripheral pulses, norml femoral pulses equa Peripheral Pulses: 4+ carotid (R), 4+ carotid (L) Gastrointestinal: normal bowel sounds, soft, non-tender, no organomegaly Back: normal inspection, normal range of motion Extremities: normal inspection, normal capillary refill, normal range of motion, no edema Neurologic/Psych: no motor/sensory deficits, awake, alert, oriented x 3, normal gait, normal mood/affect, quality control II-XII nml as tested Reflexes: 2+: bicep (R), bicep (L). Skin: intact, normal color, warm/dry Lymphatic: adenopathy Core Measures Severe Sepsis Present: No Septic Shock Present: No Progress Differential Diagnosis: influenza, otitis, sinusitis Plan of Care: Current Medications Sig/Angel Start time Last Medication Dose Stop Time Status Admin Sodium Chloride 1,000 ML BOLUS ONE 10/16 2199 AC 10/16 (Normal Saline 0.9%) 10/16 Sodium Chloride 1,000 ML BOLUS ONE 10/16 2199 AC 10/16 (Normal Saline 0.9%) 10/16 Diagnostic Imaging: Viewed by Me: Ultrasound. Discussed w/RAD: Ultrasound. Radiology Impression: no acute abnormality Initial ED EKG: none Departure Departure Time of Disposition: 129 Disposition: HOME OR SELF CARE Condition: Stable Clinical Impression Primary Impression: Sinusitis, acute Qualifiers: Sinusitis location: unspecified location Recurrence: not specified as recurrent Qualified Code: J01.90 - Acute sinusitis, unspecified Secondary Impressions: Dehydration syndrome, Post-tussive emesis Referrals: CHAS WOLFF MD (PCP/Family) Departure Forms: Customer Survey General Discharge Information Prescriptions: Current Visit Scripts Albuterol Sulfate (Proair Hfa) 2-4 PUF INH Q4-6 PRN PRN shortness of breath, cough #1 INHAL Ref 1 Promethazine HCl/Codeine (Promethazine-Codeine Syrup) 5-10 ML PO Q4-6 PRN cough #240 ML
[2016-10-16] MEDS ORDERED: AMOX-CLAV 875-1 EACH PO (22:21)
--- NOTE | 2016-10-16 22:21 | ULTRASOUND REPORT ---
EXAMINATION: ULTRASOUND PELVIC, Limited CLINICAL INFORMATION: Sinusitis for one week. Vomiting. Some spotting. COMPARISON: Ultrasound 08/19/2016 TECHNIQUE: Transabdominal grayscale imaging Spectral Doppler and color Doppler exam was utilized. LMP: 07/18/2016. Gestational age 12 weeks 6 days. DASHAWN 04/24/2017 FINDINGS: UTERUS: Single uterine gestation. There is motion and cardiac activity. heart rate 165 bpm. Placenta anterior. biometrics: 1. BPD. 2.53 cm. 14 weeks 3 days. 2. Head circumference. 7.7 cm. 13 weeks 3 days. 3. Abdominal circumference. 5.84 cm. 12 weeks 5 days. 4. Femur length. 0.85 cm. 12 weeks 4 days. Gestational age by ultrasound 13 weeks 2 days. DASHAWN 04/21/2017 Cul-de-sac: No Fluid IMPRESSION: Single uterine gestation with estimated gestational age by ultrasound of 13 weeks 2 days.
[2016-10-17] MEDS ORDERED: PROMETHAZINE-C118 ML PO (01:34)
[2016-10-17] MEDS ORDERED: PROAIR HFA8.5 GM INH (01:34)
[2016-10-17 01:40] VITALS: BP 116/61
== END 2016-10-17 01:45 ==
LOC: ERH 20:33
DX: O99.511 Diseases of the respiratory system complicating pregnancy, first trimester (principal); J32.9 Chronic sinusitis, unspecified; E86.0 Dehydration; R11.10 Vomiting, unspecified
CPT/HCPCS: 1263; 96374; 96375; 96376; J0131; J1100; J1200

== ENCOUNTER 2016-10-22 07:56 | Emergency (ER) | payer OTHER ==
[~2016-10-22] VITALS: Ht 167.6 cm; Wt 68.0 kg
[~2016-10-22 07:56] MED LIST changes: +AMOX-CLAV 875-1 EACH PO; +PROAIR HFA8.5 GM INH; +PROMETHAZINE-C118 ML PO
[2016-10-22 07:58] VITALS: BP 136/87
--- NOTE | 2016-10-22 08:07 | ED GENERAL ADULT ---
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 (Medrol) 4 MG TAB.DS.PK 1 DP PO AD INFLAMMATION 6 on day 1 then reduce by one tablet daily until gone Promethazine HCl/Codeine (Promethazine-Codeine Syrup) 6.25 MG-10 MG/5 ML SYRUP 5-10 ML PO Q4-6 PRN cough Triage Note: PT TO ED C/O CONTINUED "HEAD COLD". PT SEEN IN ED THURSDAY FOR SAME, SENT HOME WITH MEDS. CALLED PCP OVER THE WEEKEND DUE TO NOT FEELING BETTER. PT WAS RX'D FLOVENT AND PREDNISONE. PT STATES SHE STILL DOES NOT FEEL BETTER. AFEBRILE. PT STATES SHE COUGHS SO HARD, SHE VOMITS. PT IS ABOUT 13 WEEKS , . 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 C/O PAIN ALL OVER FROM COUGHING. Triage Nurses Notes Reviewed? yes Onset: Gradual Duration: constant Timing: recent history Severity: moderate Severity Numbers: 5 : Yes Patient currently breastfeeds: No HPI: Patient is a 25-year-old female who is a approximately 13 weeks with a past medical history of asthma who presents emergency with a two-week history of persistent coughing that has produced intermittent production of yellow cough. Patient has been evaluated in the emergency room on October 16 for similar complaints in which she was administered albuterol inhaler and cough suppressant patient also states that she just finished a course of PREDNISONE and states she feels no better with the cough. Patient states that the coughing has been so bad that it is made her vomit on occasion where it is difficult for her to by mouth hydrate. Patient had positive sick contacts last week however they are better. Patient is complaining of headaches sinus pressure and pain nasal congestion patient just finished a course of prednisone and patient has a prescription of a 875 mg of Augmentin waiting at the pharmacy to be picked up today prescribed by primary care doctor Patient has also tried [id number] Sudafed and Tylenol with minimal relief of symptoms Patient states that she had mild pink vaginal spotting yesterday however this is now resolved Patient denies any fevers chest pain abdominal pain dysuria hematuria It is noted to patient's medical records which she provides to us that patient has ABO grouping value of oh Rh type positive antibody screen negative this was collected on 09/15/2016 by CARBIDE DIE MAKER SATHYA CONN MD PATIENT: ALEXUS RAMIREZ PRESENT AGE: 25 PATIENT ACCOUNT NO: [id number] : 90 LOCATION: [facility] ORDERING PHYSICIAN: ESTELLA LEONE DO SERVICE DATE: 10/16/16 EXAM TYPE: US - US- VIABILITY EXAMINATION: ULTRASOUND PELVIC, Limited CLINICAL INFORMATION: Sinusitis for one week. Vomiting. Some spotting. COMPARISON: Ultrasound 08/19/2016 TECHNIQUE: Transabdominal grayscale imaging Spectral Doppler and color Doppler exam was utilized. LMP: 07/18/2016. Gestational age 12 weeks 6 days. DASHAWN 04/24/2017 FINDINGS: UTERUS: Single uterine gestation. There is motion and cardiac activity. heart rate 165 bpm. Placenta anterior. biometrics: 1. BPD. 2.53 cm. 14 weeks 3 days. 2. Head circumference. 7.7 cm. 13 weeks 3 days. 3. Abdominal circumference. 5.84 cm. 12 weeks 5 days. 4. Femur length. 0.85 cm. 12 weeks 4 days. Gestational age by ultrasound 13 weeks 2 days. DASHAWN 04/21/2017 Cul-de-sac: No Fluid IMPRESSION: Single uterine gestation with estimated gestational age by ultrasound of 13 weeks 2 days. (LIBORIO BERNAL) Past History Travel History Traveled to [place] past 21 day No Medical History Any Pertinent Medical History? see below for history Neurological: migraine EENT: NONE Cardiovascular: NONE Respiratory: PNA Gastrointestinal: NONE Hepatic: NONE Renal: NONE Musculoskeletal: NONE Psychiatric: NONE Endocrine: NONE Blood Disorders: VON WILLDEBRAUNS AUTOIMMUNE PANCYTOPENIA Cancer(s): NONE HAND FINISHER/Reproductive: HPV, OVARIAN CYSTS History of MRSA: No History of VRE: No History of CDIFF: No Surgical History Surgical History: Sinus surgery C SECTION 2015 LASER CERVIX WISDOM TEETH REMOVED Psychosocial History Who do you live with Patient/Self What is your primary language Citizen [place] Tobacco Use: Never used ETOH Use: denies use Illicit Drug Use: denies illicit drug use Family History Family History, If Any: FATHER FH: diabetes mellitus, Onset: Unknown. Hx Contributory? No (LIBORIO BERNAL) Review of Systems Review of Systems Constitutional: Reports: see HPI. Denies: fever. EENTM: Reports: nasal congestion. Respiratory: Reports: see HPI, cough. Denies: short of breath. Cardiovascular: Reports: see HPI. GI: Reports: see HPI, nausea. Denies: abdominal pain. Genitourinary: Reports: see HPI. Musculoskeletal: Reports: back pain, muscle pain. Skin: Reports: no symptoms. Neurological/Psychological: Reports: see HPI, headache. Hematologic/Endocrine: Reports: no symptoms. Immunologic/Allergic: Reports: no symptoms. All Other Systems: Reviewed and Negative (LIBORIO BERNAL) Physical Exam Physical Exam General Appearance: no apparent distress, alert, comfortable Comments: Well-developed well-nourished person in no acute distress HEENT: Normal EENT exam, extraocular motion intact, no nystagmus. Pupils equally round and reactive to light and accommodation. Nose is atraumatic. External auditory canal and Tympanic membranes clear. Pharynx normal. No swelling or edema. Nasal congestion noted bilateral frontal and maxillary sinus point tenderness Neck: Supple, no lymphadenopathy, normal range of motion without pain or tenderness Back: Nontender, no CVA tenderness. Cardiovascular: Regular rate and rhythms no murmurs rubs or gallops, normal JVP Respiratory: Chest nontender. No respiratory distress.breath sounds clear to auscultation bilaterally Abdomen: Soft, nontender nondistended, no appreciable organomegaly. Normal bowel sounds. No ascites Extremity: No edema, no calf tenderness to palpation, normal and equal pulses. Neuro: Alert oriented x3, motor sensory normal, Skin: No appreciable rash on exposed skin, skin is warm and dry. Psych: Mood and affect is normal, memory and judgment is normal. Core Measures ACS in differential dx? No CVA/TIA Diagnosis: No Severe Sepsis Present: No Septic Shock Present: No (LIBORIO BERNAL) Progress Differential Diagnoses I considered the following diagnoses in my evaluation of the patient: [ Threatened , URI, pneumonia, sinusitis, pharyngitis, otitis media, otitis externa, mastoiditis, otitis media] Plan of Care: Orders Procedure Date/time Status AEROSOL (GEN) 10/22 09 Complete URINALYSIS 10/22 0852 Active Patient on initial examination was in no apparent distress however patient was noted to have persistent coughing. Clear lungs to auscultation. 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 Patient has nontender abdomen and no current concerns. Patient after nebulizer treatment was noted to have improvement of coughing. Patient was given IV fluids and Zofran which she felt significantly prove where patient was able tolerate by mouth on discharge. (LIBORIO BERNAL) Initial ED EKG: none (LIBORIO BERNAL) Departure Departure Disposition: HOME OR SELF CARE Condition: Stable Clinical Impression Primary Impression: Sinusitis Secondary Impressions: URI (upper respiratory infection) Referrals: NEW LEE,CHAS (PCP/Family) Additional Instructions: As discussed continue home medications as directed previously prescribed to especially the Augmentin. begin the prescription of Medrol Dosepak as directed for the full course. Begin the prescription of Tessalon Perles for cough and DICLEGIS for nausea. Follow-up with your CARBIDE DIE MAKER and your primary care doctor in 2 days if no better. Prescription is waiting at [facility] pharmacy. If symptoms worsen return to the emergency room. Departure Forms: Customer Survey General Discharge Information Prescriptions: Current Visit Scripts Benzonatate (Tessalon Perle) 1 CAP PO TID PRN COUGH #21 CAP Methylprednisolone. (Medrol) 1 DP PO AD #1 DP 6 on day 1 then reduce by one tablet daily until gone Doxylamine/Pyridoxine HCl (Diclegis Dr 10-10 MG Tablet) 2 TAB PO QPM PRN NAUSEA #20 TAB (LIBORIO BERNAL) PA/BANDMILL OPERATOR Co-Sign Statement Statement: ED Attending supervision documentation- I saw and evaluated the patient. I have also reviewed all the pertinent lab results and diagnostic results. I agree with the findings and the plan of care as documented in the PA's/BANDMILL OPERATOR's documentation. x I have reviewed the ED Record and agree with the PA's/BANDMILL OPERATOR's documentation. [] Additions or exceptions (if any) to the PAs/BANDMILL OPERATOR's note and plan are summarized below: [] (PREM LEE,TU) Critical Care Note Critical Care Note Critical Care Time: non-applicable (LIBORIO BERNAL)
[2016-10-22] MEDS ORDERED: FLOVENT HFA10.6 GM INH (09:06)
[2016-10-22] MEDS ORDERED: DICLEGIS DR 101 EACH PO (09:35)
[2016-10-22] MEDS ORDERED: MEDROL4 M2 PO (09:35)
[2016-10-22] MEDS ORDERED: TESSALON PERLE100 M1 PO (09:35)
== END 2016-10-22 09:58 ==
LOC: ERH 07:56
DX: O99.511 Diseases of the respiratory system complicating pregnancy, first trimester (principal); J32.9 Chronic sinusitis, unspecified; J06.9 Acute upper respiratory infection, unspecified; Z3A.13 13 weeks gestation of pregnancy
CPT/HCPCS: 1263; 96374; J2405

== ENCOUNTER 2017-05-27 07:37 | Emergency (ER) | payer OTHER ==
[~2017-05-27] VITALS: Ht 167.6 cm; Wt 65.8 kg
[~2017-05-27 07:37] MED LIST changes: +DICLEGIS DR 101 EACH PO; +DICLOXACILLIN500 M2 PO; +FLOVENT HFA10.6 GM INH; +NORCO 5-325 TA1 EACH PO; +TESSALON PERLE100 M1 PO
--- NOTE | 2017-05-27 08:37 | ED GENERAL ADULT ---
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 TEMP 100.1, TOOK TYLENOL AT 0630 THIS AM. Triage Nurses Notes Reviewed? yes Onset: Abrupt Duration: day(s):, constant No Modifying Factors: none : No Patient currently breastfeeds: No HPI: 26-year-old female who comes into emergency room for further evaluation of multiple complaints. Patient is currently breast-feeding. She currently complains of left breast pain and swelling and inability to get milk out of breast. She has had mastitis before and it feels the same. She also reports associated congestion with cough and mucus production and right ear pain. The upper respirations symptoms began on Thursday in the ear pain and fever began last night. She reports associated chills and body aches. No vomiting. One episode of diarrhea. Denies any other assistance of the symptoms at this time. Comes in for further evaluation. (Saran ESTRADA,Eddie) Past History Travel History Traveled to [place] past 21 day No Medical History Any Pertinent Medical History? 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 Hx Contributory? No (Eddie Hurd) Review of Systems Review of Systems Constitutional: Reports: see HPI. EENTM: Reports: see HPI. Respiratory: Reports: see HPI. Cardiovascular: Reports: no symptoms. GI: Reports: no symptoms. Genitourinary: Reports: no symptoms. Musculoskeletal: Reports: no symptoms. Skin: Reports: no symptoms. Neurological/Psychological: Reports: no symptoms. Hematologic/Endocrine: Reports: no symptoms. Immunologic/Allergic: Reports: no symptoms. All Other Systems: Reviewed and Negative (Eddie Hurd) Physical Exam Physical Exam General Appearance: well developed/nourished, alert, awake Head: atraumatic Eyes: Bilateral: normal appearance. Ears, Nose, Throat: normal ENT inspection, hearing grossly normal, right tm erythematous and dull, left tm pearly licea Neck: normal inspection Respiratory: normal breath sounds, no respiratory distress Cardiovascular: regular rate/rhythm, tachycardia Extremities: normal inspection Neurologic/Psych: awake, alert, oriented x 3 Comments: Mild swelling to left breast, no erythema, no palpable abscess, Core Measures ACS in differential dx? No CVA/TIA Diagnosis: No Sepsis Present: No Sepsis Focused Exam Completed? No (Eddie Hurd) Progress Differential Diagnoses I considered the following diagnoses in my evaluation of the patient: Mastoiditis, otitis media, ammonia, influenza, sinusitis, Plan of Care: Orders Procedure Date/time Status RAPID VIRAL INFLUENZA A 05/27 828 Complete COMPREHENSIVE METABOLIC PANEL 05/27 828 Complete CBC WITHOUT DIFFERENTIAL 05/27 828 Complete Laboratory Tests 05/27/17 0904: Anion Gap 14, Estimated GFR > 60, BUN/Creatinine Ratio 18.3, Glucose 91, Calcium 8.6, Total Bilirubin 0.1 L, AST 18, ALT 49, Alkaline Phosphatase 91, Total Protein 5.9 L, Albumin 3.7, Globulin 2.2, Albumin/Globulin Ratio 1.7, CBC w Diff MAN DIFF ORDERED, RBC 4.54, MCV 77.7 L, MCH 24.9 L, RDW 16.0 H, MPV 10.5 H, Gran % 48.2, Lymphocytes % 16.6 L, Monocytes % 15.9 H, Eosinophils % 19.1 H, Basophils % 0.2, Absolute Granulocytes 2.6, Segmented Neutrophils 32 L, Band Neutrophils 14 H, Absolute Lymphocytes 0.9 L, Lymphocytes 20 L, Monocytes 16 H, Absolute Monocytes 0.9 H, Eosinophils 17 H, Absolute Eosinophils 1.0, Absolute Basophils 0, Metamyelocytes 1, Platelet Estimate ADEQUATE, Polychromasia 1+, Hypochromic-Microcytic 1+, Poikilocytosis 1+, Anisocytosis 1+, Microcytic Cells 1+, PUBS MCHC 32.0 L Microbiology 05/27 907 NASOPHARYN: Influenza Virus A & B Rapid Smear - COMP Diagnostic Imaging: Viewed by Me: Radiology Read. Discussed w/RAD: Radiology Read. Radiology Impression: PATIENT: ALEXUS RAMIREZ PRESENT AGE: 26 PATIENT ACCOUNT NO: [id number] : 90 LOCATION: [facility] ORDERING PHYSICIAN: Eddie ESTRADA SERVICE DATE: 05/27/17 EXAM TYPE: RAD - XRY-CHEST XRAY, TWO VIEWS EXAMINATION: XR CHEST CLINICAL INFORMATION: Cough, fever COMPARISON: 06/04/2009 TECHNIQUE: 2 views of the chest were obtained. FINDINGS: Lung volumes are symmetric. No focal consolidation is seen. There is suggestion of trace linear atelectasis at the left lung base. No evidence of pneumothorax, significant pleural effusion, or pulmonary edema. The cardiomediastinal contour is unremarkable. No acute osseous findings are seen. IMPRESSION: No focal consolidation identified. DICTATED BY: Cayetano Castaneda MD DATE/TIME DICTATED:05/27/17858 HAM CURER:VICKI DATE/TIME TRANSCRIBED:05/27/17858 CONFIDENTIAL, DO NOT COPY WITHOUT APPROPRIATE AUTHORIZATION. <Electronically signed in Other Vendor System> SIGNED BY: Tonya LEECayetano 05/27/17 0906 Initial ED EKG: none Comments: 05/27/2017 12:28:19 PM Upon reevaluating the patient she feels significantly better. Patient has an otitis media and symptoms consistent with mastitis. Patient was covered with Augmentin which should have dual coverage. Warm compresses over her left breast. Due to the fact that the patient was prescribed Vicodin for pain she was told to pump and dump while taking this medication. She understands. No signs of pneumonia. Return if any other concerns. (Saran ESTRADA,Eddie) Departure Departure Disposition: HOME OR SELF CARE Condition: Stable Clinical Impression Primary Impression: Right otitis media Secondary Impressions: Mastitis Referrals: Katya Mendoza MD (PCP/Family) Additional Instructions: Take Vicodin and Augmentin as prescribed. Pump and dump breast milk while you are taking the Vicodin. Do not breast-feed until 72 hours after Vicodin is discontinued. Return if any concerns worsening symptoms. Please go over all results of today's visit with your primary care doctor. Contact your primary care doctor to let them know you were here in the emergency room. There may be nonspecific findings which may not be related to your visit today here in the emergency room but may require further evaluation and chronic monitoring by your primary care doctor. If you had a laceration today the chance of foreign body always remains. You should follow-up with your primary care doctor for recheck in 3-5 days for a wound check. If you had an x-ray done there is a chance that a fracture could have been missed on initial read and you should follow-up with your primary care doctor for repeat x-rays if symptoms persist. If your blood pressure was elevated here in the emergency room please have rechecked by [facility] primary care doctor within the next 48. If you were prescribed a narcotic here in the emergency room or any type of controlled substances you're not allowed to drive while taking this medication or operate any type of heavy machinery. Narcotics can make you feel lightheaded dizziness nausea and can cause constipation. You may need to supervisor picking crew a stool softener. Thank you for choosing [facility] emergency room. Please return to the emergency room immediately if you have any other concerns worsening of symptoms. Departure Forms: Customer Survey General Discharge Information Prescriptions: Current Visit Scripts Amoxicillin/Potassium Clav (Augmentin 875-125 Tablet) 1 TAB PO BID #20 TAB Hydrocodone/Acetaminophen (Hydrocodon-Acetaminophen 5-325) 1-2 TAB PO Q4-6 PRN PRN pain #10 TAB (Eddie Hurd) PA/PROFESSOR OF FRENCH Co-Sign Statement Statement: ED Attending supervision documentation- [] I saw and evaluated the patient. I have also reviewed all the pertinent lab results and diagnostic results. I agree with the findings and the plan of care as documented in the PA's/PROFESSOR OF FRENCH's documentation. [X] I have reviewed the ED Record and agree with the PA's/PROFESSOR OF FRENCH's documentation. [] Additions or exceptions (if any) to the PAs/PROFESSOR OF FRENCH's note and plan are summarized below: [] (Williams LEE,Mary) Critical Care Note Critical Care Note Critical Care Time: non-applicable (Eddie Hurd)
--- NOTE | 2017-05-27 09:06 | RADIOLOGY REPORT ---
EXAMINATION: XR CHEST CLINICAL INFORMATION: Cough, fever COMPARISON: 06/04/2009 TECHNIQUE: 2 views of the chest were obtained. FINDINGS: Lung volumes are symmetric. No focal consolidation is seen. There is suggestion of trace linear atelectasis at the left lung base. No evidence of pneumothorax, significant pleural effusion, or pulmonary edema. The cardiomediastinal contour is unremarkable. No acute osseous findings are seen. IMPRESSION: No focal consolidation identified.
[2017-05-27 09:15] LABS: ABSOLUTE BASOPHIL COUNT 0 /CUMM (0.0-0.2); ABSOLUTE GRANULOCYTE CT 2.6 /CUMM (1.4-6.5); ABSOLUTE LYMPH COUNT 0.9 /CUMM (1.2-3.4); ABSOLUTE MONOCYTE COUNT 0.9 /CUMM (0.10-0.60); BASOPHIL % 0.2 % (0.0-2.0); EOSINOPHIL % 19.1 % (0-5); HEMATOCRIT 35.3 % (37-47); MEAN CORPUSCULAR HGB 24.9 PG (27.0-31.0); MEAN CORPUSCULAR VOLUME 77.7 FL (81.0-99.0); MEAN PLATELET VOLUME 10.5 FL (7.4-10.4); PLATELET COUNT 132 /CUMM (130-400); RED BLOOD CELL CT 4.54 /CUMM (4.20-5.40); WHITE BLOOD CELL COUNT 5.5 /CUMM (4.8-10.8)
[2017-05-27 09:23] LABS: GRANULOCYTE % 48.2 % (42.2-75.2)
[2017-05-27] MEDS ORDERED: AUGMENTIN 875-1 EACH PO (10:21)
[2017-05-27] MEDS ORDERED: HYDROCODON-ACE1 EAC2 PO (10:21)
[2017-05-27 10:33] VITALS: BP 102/56
== END 2017-05-27 11:38 ==
LOC: ERH 07:37
PROVIDERS: Physician Assistant Medical
DX: N61.0 Mastitis without abscess (principal); H66.91 Otitis media, unspecified, right ear
CPT/HCPCS: 71046; 87804; 87804-59; 96374; 96375; 96376

== ENCOUNTER 2017-08-08 08:24 | Emergency (ER) | payer OTHER ==
[~2017-08-08] VITALS: Ht 167.6 cm; Wt 65.8 kg
[~2017-08-08 08:24] MED LIST changes: +AUGMENTIN 875-1 EACH PO; +HYDROCODON-ACE1 EAC2 PO
--- NOTE | 2017-08-08 08:57 | ED NECK/BACK PAIN COMPLAINT ---
History of Present Illness General Chief Complaint: Low Back Pain/Injury Stated Complaint: NECK PAIN LBP BILATERAL LEG NUMBNESS Source: patient Exam Limitations: no limitations Vital Signs & Intake/Output Vital Signs & Intake/Output Vital Signs Date Time Temp Pulse Resp B/P B/P Pulse O2 O2 Flow FiO2 Mean Ox Delivery Rate 08/08 1118 98.3 96 15 133/90 100 Room Air Room Air 08/08 0843 99.4 123 20 144/98 99 Room Air Allergies Coded Allergies: sulfamethoxazole (From BACTRIM) (Severe, 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) tranexamic acid (From LYSTEDA) (Severe, ANAPHYLAXIS 05/27/17) trimethoprim (From BACTRIM) (Severe, 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) midazolam (From VERSED) (PER PT - MAKES ME VERY EMOTIONAL, EXTREME MOOD SWINGS 08/24/16) Reconcile Medications Amoxicillin/Potassium Clav (Augmentin 875-125 Tablet) 875 MG-125 MG TABLET 1 TAB PO BID otitis media Hydrocodone/Acetaminophen (Hydrocodon-Acetaminophen 5-325) 5 MG-325 MG TABLET 1-2 TAB PO Q4-6 PRN PRN pain Hydromorphone HCl (Dilaudid) 2 MG TABLET 1 TAB PO BIDP PRN pain Triage Note: C/O PAIN IN NECK, BACK AND HIPS X 2 DAYS WITH INTERMITTANT BILATERAL LEG NUMBNESS. JUST FINISHED ABX FOR SINUS INFECTION YESTERDAY. Triage Nurses Notes Reviewed? yes Onset: Gradual Duration: getting worse Timing: recent history Radiation: buttocks, upper legs, lower legs : No Patient currently breastfeeds: No HPI: Patient is a 26-year-old female with a past medical history of autoimmune PANcytopenia and von Willebrand's disorder who states that approximately 8 days ago she had a sinus infection where she was prescribed Augmentin and Tylenol codeine which she states that the sinus infection had improved as well as the pain ON THURSDAY, 3 days ago patient while at rest begin complaining of generalized neck and back pain and soreness with intermittent radiation of numbness and pain down bilateral legs. Patient denies any mechanism injury or excessive physical activity. Complains Denies any ear pain sore throat cough chest pain vomiting dysuria hematuria vaginal bleeding or discharge. Patient had her scheduled IVIG infusion the following day and which she was also given Neulasta administration due to concerns of neutropenia FROM blood work She also received influenza evaluation AND OBTAINED blood cultures in which records indicate white blood cell count was 3,800, platelets 87, and absolute neutrophil count was 900 Patient currently is breast-feeding Denies any headache blurred vision photophobia Patient's only fever was noted 8 days ago when the sinus infection began (Juan Yao) Past History Travel History Traveled to [place] past 21 day No Medical History Any Pertinent Medical History? see below for history Neurological: migraine EENT: NONE Cardiovascular: NONE Respiratory: PNA Gastrointestinal: NONE Hepatic: NONE Renal: NONE Musculoskeletal: NONE Psychiatric: NONE Endocrine: NONE Blood Disorders: VON WILLDEBRAUNS AUTOIMMUNE PANCYTOPENIA Cancer(s): NONE WEB PUBLISHER/Reproductive: HPV, OVARIAN CYSTS History of MRSA: No History of VRE: No History of CDIFF: No Surgical History Surgical History: Sinus surgery C SECTION 2015 LASER CERVIX WISDOM TEETH REMOVED Psychosocial History Who do you live with Patient/Self What is your primary language Yoruba Tobacco Use: Never used ETOH Use: occasional use Family History Family History, If Any: FATHER FH: diabetes mellitus, Onset: Unknown. Hx Contributory? No (Juan Yao) Review of Systems Review of Systems Constitutional: Reports: see HPI, fever. Eyes: Reports: no symptoms. Ears, Nose, Throat, Mouth: Reports: see HPI. Respiratory: Reports: no symptoms. Cardiovascular: Reports: no symptoms. Gastrointestinal/Abdominal: Reports: no symptoms. Musculoskeletal: Reports: see HPI, back pain, joint pain, joint swelling, muscle pain, muscle stiffness, neck pain. Skin: Reports: no symptoms. Neurological/Psychological: Reports: see HPI, paresthesia. Denies: headache. All Other Systems: Reviewed and Negative (Juan Yao) Physical Exam Physical Exam General Appearance: mild distress Head: atraumatic Eyes: Bilateral: normal appearance, PERRL, EOMI. Ears, Nose, Throat, Mouth: hearing grossly normal Neck: normal inspection, limited range of motion, paraspinous muscle tender, stiff neck, tender lateral Respiratory: no respiratory distress Cardiovascular: tachycardia Peripheral Pulses: 2+ radial (R) Gastrointestinal: normal bowel sounds, soft, non-tender Back: normal inspection, decreased range of motion Neurologic/Psych: no motor/sensory deficits, awake, alert, oriented x 3 Skin: intact, normal color Core Measures CVA/TIA Diagnosis: No (Juan Yao) Progress Differential Diagnosis: AAA, aortic dissection, C spine injury, carotid dissection, cauda equina syn, herniated disc, myofascial strain, pyelo/UTI, sciatica, spinal cord inj, thoracic outlet syn, T/L spine injury, ureterolithiasis Plan of Care: Orders Procedure Date/time Status RAPID VIRAL INFLUENZA A 08/09 911 Active BLOOD CULTURE 08/09 911 Active HUMAN BETA HCG SCREEN 08/09 911 Complete COMPREHENSIVE METABOLIC PANEL 08/09 911 Complete CBC WITHOUT DIFFERENTIAL 08/09 911 Complete Current Medications Sig/Angel Start time Last Medication Dose Stop Time Status Admin Ketorolac 30 MG ONCE ONE 08/08 944 CAN Tromethamine 08/08 945 (Toradol) Laboratory Tests 08/08/17944: Anion Gap 15, Estimated GFR > 60, BUN/Creatinine Ratio 24.0, Glucose 76, Calcium 9.2, Total Bilirubin 0.5, AST 28, ALT 36, Alkaline Phosphatase 89, Total Protein 6.9, Albumin 4.0, Globulin 2.9, Albumin/Globulin Ratio 1.4, Total Beta HCG NEGATIVE, CBC w Diff MAN DIFF ORDERED, RBC 4.53, MCV 80.1 L, MCH 26.1 L, MCHC 32.5 L, RDW 16.1 H, MPV 10.3, Gran % 73.0, Lymphocytes % 9.6 L, Monocytes % 7.5, Eosinophils % 9.6 H, Basophils % 0.3, Absolute Granulocytes 17.3 H, Segmented Neutrophils 55, Band Neutrophils 12 H, Absolute Lymphocytes 2.3, Lymphocytes 13 L, Monocytes 8, Absolute Monocytes 1.8 H, Eosinophils 11 H, Absolute Eosinophils 2.3, Absolute Basophils 0.1, Myelocytes 1 H, Platelet Estimate DECREASED, Hypochromic-Microcytic 2+, Poikilocytosis 2+, Anisocytosis 1 + Microbiology 08/08 1013 BLOOD: Blood Culture - RECD 08/09 911 NASOPHARYN: Influenza Virus A & B Rapid Smear - ORD 08/09 911 BLOOD: Blood Culture - ORD Differential diagnosis also included meningitis discitis or spinal abscess Patient denies any IV drug use My suspicion of meningitis is low however it is of my differential, patient is alert and oriented but confused Patient has no signs of infection at this time unremarkable ENT exam clear lungs auscultation nontender abdomen. Discussed patient's blood work where leukocytosis and bands are most likely from the Neulasta administration, patient was given all copies Patient was given second dose of morphine and had improvement of symptoms patient was also given IV steroids for concerns of radiculopathy Blood cultures pending Patient afebrile no apparent distress on discharge Patient was neurovascularly intact to lower and upper extremities No concerns of cauda equina syndrome Discussed disposition with Dr. AMARO (Juan Yao) Departure Departure Disposition: HOME OR SELF CARE Condition: Stable Clinical Impression Primary Impression: Low back pain Secondary Impressions: Arthralgia, Neck pain Referrals: Katya Mendoza MD (PCP/Family) Additional Instructions: As discussed begin the prescription of Dilaudid for pain and inflammation, as follow-up with your primary care doctor and your supervisor powdered sugar on Thursday please provide them with copies of blood work provided to you, presciptions waiting at [facility]. If symptoms worsen or if you develop any new concerning symptoms such as fever return to emergency room Departure Forms: Customer Survey General Discharge Information Prescriptions: Current Visit Scripts Hydromorphone HCl (Dilaudid) 1 TAB PO BIDP PRN pain #10 TAB (Juan Yao) PA/KILN CAR REPAIRER Co-Sign Statement Statement: ED Attending supervision documentation- I saw and evaluated the patient. I have also reviewed all the pertinent lab results and diagnostic results. I agree with the findings and the plan of care as documented in the PA's/KILN CAR REPAIRER's documentation. x I have reviewed the ED Record and agree with the PA's/KILN CAR REPAIRER's documentation. [] Additions or exceptions (if any) to the PAs/KILN CAR REPAIRER's note and plan are summarized below: [] (Clara LEE,Willi)
[2017-08-08 10:07] LABS: ABSOLUTE BASOPHIL COUNT 0.1 /CUMM (0.0-0.2); ABSOLUTE EOSINOPHIL COUNT 2.3 /CUMM (0.0-0.7); ABSOLUTE GRANULOCYTE CT 17.3 /CUMM (1.4-6.5); ABSOLUTE LYMPH COUNT 2.3 /CUMM (1.2-3.4); ABSOLUTE MONOCYTE COUNT 1.8 /CUMM (0.10-0.60); BASOPHIL % 0.3 % (0.0-2.0); EOSINOPHIL % 9.6 % (0-5); HEMATOCRIT 36.3 % (37-47); MEAN CORPUSCULAR HGB 26.1 PG (27.0-31.0); MEAN CORPUSCULAR HGB CONC 32.5 G/DL (33.0-37.0); MEAN CORPUSCULAR VOLUME 80.1 FL (81.0-99.0); MEAN PLATELET VOLUME 10.3 FL (7.4-10.4); PLATELET COUNT 133 /CUMM (130-400); RBC DISTRIBUTION WIDTH 16.1 % (11.5-14.5); RED BLOOD CELL CT 4.53 /CUMM (4.20-5.40); WHITE BLOOD CELL COUNT 23.7 /CUMM (4.8-10.8)
[2017-08-08 11:18] VITALS: BP 133/90
[2017-08-08] MEDS ORDERED: DILAUDID2 M1 PO (11:25)
== END 2017-08-08 11:58 ==
LOC: ERH 08:24
PROVIDERS: Physician Assistant
DX: M54.5 Low back pain (principal); M54.2 Cervicalgia
CPT/HCPCS: 87040; 87804; 87804-59; 96361; 96374; 96375; 96376; J1885

== ENCOUNTER 2017-09-14 08:17 | Emergency (ER) | payer OTHER ==
[~2017-09-14] VITALS: Ht 167.6 cm; Wt 61.2 kg
--- NOTE | 2017-09-14 09:21 | ED HEADACHE COMPLAINT ---
History of Present Illness General Chief Complaint: Headache Stated Complaint: MIGRAINE X3 DAYS Source: patient Exam Limitations: no limitations Vital Signs & Intake/Output Vital Signs & Intake/Output Vital Signs Date Time Temp Pulse Resp B/P B/P Pulse O2 O2 Flow FiO2 Mean Ox Delivery Rate 09/14 0952 98.9 09/14 0908 98.9 102 112/60 09/14 0825 98.6 97 20 120/80 98 Allergies Coded Allergies: sulfamethoxazole (From BACTRIM) (Severe, 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) tranexamic acid (From LYSTEDA) (Severe, ANAPHYLAXIS 05/27/17) trimethoprim (From BACTRIM) (Severe, 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) midazolam (From VERSED) (PER PT - MAKES ME VERY EMOTIONAL, EXTREME MOOD SWINGS 08/24/16) ibuprofen (From MOTRIN) (Severe, Bleeding disorder 08/12/17) Reconcile Medications No Known Home Medications Triage Note: PER PT HX OF MIGRAINES THIS ONE SINCE THURSDAY IN TOUCH WITH NEUROLOGIST WHO INCREASED MY IMITREX, REGLAN AND TYLENOL BUT WITHOUT EFFECT ALSO HX OF VONWILDABRANDS BLEEDING SINCE THURSDAY WITH MENSES 1 PAD AN HR FEELING DIZZY DR WANTED ME TO DREWSEY BUT COULD NOT MAKE IT THERE Triage Nurses Notes Reviewed? yes : No Patient currently breastfeeds: No HPI: Patient presents for evaluation of a "migraine headache" that began 3 days ago, gradual in onset. Patient has tried Imitrex Reglan Tylenol and Excedrin without improvement. She spoke to her neurologist yesterday and was told to go to an emergency department. Patient states she is getting "wavy vision" which is not typical for her migraines. In addition she states that the location is different than her usual migraines which are bifrontal generally. This headache is in the back of her head and upper neck. Patient denies any associated fever or cold symptoms but states she has "had a head cold" over the past few days. She is also menstruating currently and the flow is heavier than usual (patient has a history of von Willebrand's disease and pancytopenia). In addition she had an episode of nose bleeding last night. She spoke with her neurologist to thence told her to speak with her copy coordinator regarding the bleeding episodes and she took an extra dose of "her bleeding medicine". The patient is referring nausea and vomiting along with her headache pain. Patient denies neck stiffness. Past History Travel History Traveled to [place] past 21 day No Medical History Any Pertinent Medical History? 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 Hx Contributory? No Review of Systems Review of Systems Constitutional: Reports: no symptoms. Eyes: Reports: no symptoms. Ears, Nose, Throat, Mouth: Reports: no symptoms. Respiratory: Reports: no symptoms. Cardiovascular: Reports: no symptoms. Gastrointestinal/Abdominal: Reports: no symptoms. Genitourinary: Reports: no symptoms. Musculoskeletal: Reports: no symptoms. Skin: Reports: no symptoms. Neurological/Psychological: Reports: headache. Hematologic/Endocrine: Reports: see HPI. Endocrine: Reports: no symptoms. Immunologic/Allergic: Reports: no symptoms. All Other Systems: Reviewed and Negative Physical Exam Physical Exam Cranial Nerves: SEE BELOW Comments: Gen.: Well-nourished, well-developed, no acute respiratory distress. Head: Normocephalic, atraumatic. Eyes: Normal inspection bilaterally, PERRLA, EOMI (unable to visualize fundi secondary to pain and photophobia) Ears: Normal inspection bilaterally Nose: Normal inspection Throat/mouth : Moist mucosa Neck: Supple, full range of motion, no goiter, no carotid bruits, equal carotid pulses Heart: Regular rate and rhythm, no murmurs rubs or gallops Lungs: Clear to auscultation bilaterally with normal air entry Chest: Nontender Back: Normal range of motion Abdomen: Nondistended, normal bowel sounds Extremities: Normal range of motion grossly, equal radial pulses, no cyanosis clubbing or edema, equal hand grasp Neurologic: Cranial nerves 2 through 12 intact, speech is clear and without apparent aphasia Skin: warm and dry Psychiatric: Calm, cooperative, no apparent delusions or hallucinations Core Measures Sepsis Present: No Sepsis Focused Exam Completed? No Progress Differential Diagnosis: IC mass/tumor, intracranial Hem., musculoskeletal pain, sinusitis, subarach. Hem. Plan of Care: Orders Procedure Date/time Status URINE 09/14 937 Complete PROTHROMBIN TIME 09/14 926 Complete CBC WITHOUT DIFFERENTIAL 09/14 926 Complete Laboratory Tests 09/14/17937: PT 12.6 H, INR 1.15, CBC w Diff NO MAN DIFF REQ, RBC 4.31, MCV 79.8 L, MCH 26.4 L, MCHC 33.0, RDW 16.2 H, MPV 9.8, Gran % 22.7 L, Lymphocytes % 23.6, Monocytes % 9.6 H, Eosinophils % 43.6 H, Basophils % 0.5, Absolute Granulocytes 1.7, Absolute Lymphocytes 1.8, Absolute Monocytes 0.7 H, Absolute Eosinophils 3.3, Absolute Basophils 0, Urine Test NEGATIVE Diagnostic Imaging: Discussed w/RAD: CT Scan. Radiology Impression: PATIENT: ALEXUS RAMIREZ PRESENT AGE: 26 PATIENT ACCOUNT NO: [id number] : 90 LOCATION: [facility] ORDERING PHYSICIAN: Vinay Eason MD SERVICE DATE: 09/14/17 EXAM TYPE: CAT - CT HEAD WO IV CONTRAST EXAMINATION: CT HEAD WITHOUT CONTRAST CLINICAL INFORMATION: Posterior headaches. History of Von Willebrand disease. COMPARISON: None TECHNIQUE: Contiguous axial imaging was performed from the skull base to vertex without intravenous administration of contrast. DLP: 618 mGy-cm FINDINGS: There is no evidence of acute intracranial hemorrhage or territorial infarction. No abnormal mass effect or midline shift is seen. Magana to white matter differentiation is well preserved. No extra-axial fluid collections are identified. The ventricles are normal in size. There is no abnormal attenuation within the brain parenchyma. The osseous structures and soft tissues are normal. Diffuse mucoperiosteal thickening bilateral ethmoid, sphenoid and frontal sinuses is noted. The mastoid cells are well-aerated. There is nonspecific round hyperdensity in the right optic disc, axial image 2, series 3. IMPRESSION: No acute intracranial process seen. Chronic pansinusitis. Nonspecific focal hyperdensityright optic disc. DICTATED BY: Rossy LEE,Ruperto DATE/TIME DICTATED:1033 CATERING ASSOCIATE:VICKI DATE/TIME TRANSCRIBED:09/14/171033 CONFIDENTIAL, DO NOT COPY WITHOUT APPROPRIATE AUTHORIZATION. <Electronically signed in Other Vendor System> SIGNED BY: Ruperto Blair MD 09/14/17 1043 Comments: 09/14/2017 9:28:00 AM patient's case discussed with Dr. Danielle, including the patient's description of her headache and physical exam findings. He feels that despite somewhat different presentation of this patient's headache (occipital and upper neck as opposed to bifrontal), a CAT scan should be adequate to rule out a bleeding episode (as opposed to an MRI scan). He recommends treatment for a migraine headache. 09/14/2017 11:30:19 AM I have updated the cool on her test results. She states her headache has improved but still significant. We have had a long discussion regarding a subarachnoid hemorrhage and a lumbar puncture. Given that this was a gradual onset headache days ago along with the lack of neck stiffness, she has decided against an LP at this time. 09/14/2017 1:19:00 PM Alexus is feeling better and wishes to return home. I have revisited the issue of the lumbar puncture but she has declined once again. Departure Departure Disposition: HOME OR SELF CARE Condition: Stable Clinical Impression Primary Impression: Headache Qualifiers: Headache type: unspecified Headache chronicity pattern: unspecified pattern Intractability: not intractable Qualified Code: R51 - Headache Referrals: Katya Mendoza MD (PCP/Family) Additional Instructions: Rest as much you can upon return home. Follow-up with your neurologist within the next 24-48 hours for reevaluation. Do not breast feed over the next 48 hours (due to medications given during her emergency department stay) or if you' re taking narcotic pain relievers-use formula instead. Notify your primary care physician of this emergency department visit and treatment plan. Return if any concerns or sudden worsening. Please note that there might be incidental findings in your evaluation that are unrelated to the current emergency department visit. Please notify your primary care doctor about this emergency department visit in order to obtain and review all of the testing performed so that these incidental findings can be monitored as needed. If you had an x-ray performed, please understand that some fractures may not be seen on the initial set of x-rays. If your symptoms persist you might need a repeat set of x-rays to check for such a fracture. If you had a laceration evaluated, please understand that foreign bodies such as glass or wood may not be visible to the naked eye or on plain x-rays. If the wound becomes red, swollen, increasingly more painful or if there is any drainage from the wound, please have it reevaluated by a physician for the possibility of a retained foreign body. If you're unable to follow up as outlined in the discharge instructions please return to the emergency department. Thank you for choosing the [facility] Emergency Department for your care. It was a pleasure to serve you today. Vinay Eason M.D. [facility] Departure Forms: Customer Survey General Discharge Information Prescriptions: Current Visit Scripts No Known Home Medications Critical Care Note Critical Care Note Critical Care Time: 30-74 min
[2017-09-14 09:46] LABS: ABSOLUTE BASOPHIL COUNT 0 /CUMM (0.0-0.2); ABSOLUTE EOSINOPHIL COUNT 3.3 /CUMM (0.0-0.7); ABSOLUTE GRANULOCYTE CT 1.7 /CUMM (1.4-6.5); ABSOLUTE LYMPH COUNT 1.8 /CUMM (1.2-3.4); ABSOLUTE MONOCYTE COUNT 0.7 /CUMM (0.10-0.60); BASOPHIL % 0.5 % (0.0-2.0); HEMATOCRIT 34.4 % (37-47); MEAN CORPUSCULAR HGB 26.4 PG (27.0-31.0); MEAN CORPUSCULAR VOLUME 79.8 FL (81.0-99.0); MEAN PLATELET VOLUME 9.8 FL (7.4-10.4); RBC DISTRIBUTION WIDTH 16.2 % (11.5-14.5); RED BLOOD CELL CT 4.31 /CUMM (4.20-5.40); WHITE BLOOD CELL COUNT 7.5 /CUMM (4.8-10.8)
[2017-09-14 09:53] LABS: PT 12.6 SEC (9.4-12.5)
[2017-09-14 10:01] LABS: EOSINOPHIL % 43.6 % (0-5); PLATELET COUNT 122 /CUMM (130-400)
[2017-09-14 10:02] LABS: GRANULOCYTE % 22.7 % (42.2-75.2)
--- NOTE | 2017-09-14 10:43 | CT SCAN REPORT ---
EXAMINATION: CT HEAD WITHOUT CONTRAST CLINICAL INFORMATION: Posterior headaches. History of Von Willebrand disease. COMPARISON: None TECHNIQUE: Contiguous axial imaging was performed from the skull base to vertex without intravenous administration of contrast. DLP: 618 mGy-cm FINDINGS: There is no evidence of acute intracranial hemorrhage or territorial infarction. No abnormal mass effect or midline shift is seen. Magana to white matter differentiation is well preserved. No extra-axial fluid collections are identified. The ventricles are normal in size. There is no abnormal attenuation within the brain parenchyma. The osseous structures and soft tissues are normal. Diffuse mucoperiosteal thickening bilateral ethmoid, sphenoid and frontal sinuses is noted. The mastoid cells are well-aerated. There is nonspecific round hyperdensity in the right optic disc, axial image 2, series 3. IMPRESSION: No acute intracranial process seen. Chronic pansinusitis. Nonspecific focal hyperdensityright optic disc.
[2017-09-14 13:25] VITALS: BP 98/60
== END 2017-09-14 13:29 ==
LOC: ERH 08:17
PROVIDERS: Emergency Medicine
DX: R51 Headache (principal)
CPT/HCPCS: 81025; 96374; 96375; 96376; J0131; J2550

== ENCOUNTER 2017-09-16 09:51 | Emergency (ER) | payer OTHER ==
[~2017-09-16] VITALS: Ht 167.6 cm; Wt 65.8 kg
[2017-09-16 09:57] VITALS: BP 128/87
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
[2017-09-16] MEDS ORDERED: DILAUDID2 M1 PO (10:48)
[2017-09-16] MEDS ORDERED: CYCLOBENZAPRINE5 M2 PO (10:48)
== END 2017-09-16 11:18 ==
LOC: ERH 09:51
DX: S16.1XXA Strain of muscle, fascia and tendon at neck level, initial encounter (principal); V49.40XA Driver injured in collision with unspecified motor vehicles in traffic accident, initial encounter; Y92.9 Unspecified place or not applicable

== ENCOUNTER 2018-01-20 17:00 | Inpatient (IN) | payer OTHER ==
[~2018-01-20] VITALS: Ht 167.6 cm; Wt 69.1 kg
[~2018-01-20 17:00] MED LIST changes: +CYCLOBENZAPRINE5 M2 PO
[2018-01-20 18:42] LABS: ABSOLUTE BASOPHIL COUNT 0 /CUMM (0.0-0.2); ABSOLUTE EOSINOPHIL COUNT 0.6 /CUMM (0.0-0.7); ABSOLUTE GRANULOCYTE CT 4.5 /CUMM (1.4-6.5); ABSOLUTE LYMPH COUNT 1.2 /CUMM (1.2-3.4); ABSOLUTE MONOCYTE COUNT 1.1 /CUMM (0.10-0.60); BASOPHIL % 0.5 % (0.0-2.0); EOSINOPHIL % 8.2 % (0-5); HEMATOCRIT 36.5 % (37-47); MEAN CORPUSCULAR HGB 26.3 PG (27.0-31.0); MEAN CORPUSCULAR VOLUME 79.6 FL (81.0-99.0); MEAN PLATELET VOLUME 9.6 FL (7.4-10.4); PLATELET COUNT 162 /CUMM (130-400); RBC DISTRIBUTION WIDTH 17.4 % (11.5-14.5); RED BLOOD CELL CT 4.58 /CUMM (4.20-5.40); WHITE BLOOD CELL COUNT 7.5 /CUMM (4.8-10.8)
[2018-01-20 18:45] LABS: GRANULOCYTE % 60.7 % (42.2-75.2)
[2018-01-20 18:49] LABS: PT 13.1 SEC (9.4-12.5); PTT 32 SEC (25-37)
--- NOTE | 2018-01-20 19:58 | ED GENERAL ADULT ---
History of Present Illness General Chief Complaint: General Adult Stated Complaint: RIGHT FACIAL SWELLING Source: patient Exam Limitations: no limitations Vital Signs & Intake/Output Vital Signs & Intake/Output Vital Signs Date Time Temp Pulse Resp B/P B/P Pulse O2 O2 Flow FiO2 Mean Ox Delivery Rate 01/20 1716 98.6 113 18 131/87 98 Room Air Allergies Coded Allergies: sulfamethoxazole (From BACTRIM) (Severe, 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) tranexamic acid (From LYSTEDA) (Severe, ANAPHYLAXIS 05/27/17) trimethoprim (From BACTRIM) (Severe, 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) hydrocodone (ITCHY 01/20/18) midazolam (From VERSED) (PER PT - MAKES ME VERY EMOTIONAL, EXTREME MOOD SWINGS 08/24/16) oxycodone (ITCHY 01/20/18) ibuprofen (From MOTRIN) (Severe, Bleeding disorder 08/12/17) Reconcile Medications Medroxyprogesterone Acetate (Depo-Provera) 150 MG/ML SYRINGE 1 ML IM Q3M CONTROL (Reported) Pnv No.122/Iron/Folic Acid ( Multi Tablet) 27 MG IRON-800 MCG TABLET 1 TAB PO DAILY POST- MVI (Reported) Sumatriptan Succinate (Imitrex) (Unknown Strength) TABLET (Unknown Dose) PO AD PRN MIGRAINES (Reported) Triage Note: 27F TO ED W ACUTE ONSET RIGHT SIDED SUBMANDIBULAR PAIN AND SWELLING SINCE 1PM. NOT ABLE TO SWALLOW OR DRINK. NO OROPHARYNGEAL EDEMA OR EXUDATE. DENIES FEVERS. PAIN WORSE ON PALPATION AND WITH LATERAL HEAD TURN Triage Nurses Notes Reviewed? yes : No Patient currently breastfeeds: No HPI: 27-year-old female presents with swelling to the right of the neck and submandibular area for 1 day. She reports some pain but denies any trouble swallowing or breathing. She denies fever or chills. She denies any specific sore throat. Past History Travel History Traveled to [place] past 21 day No Medical History Any Pertinent Medical History? 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 Hx Contributory? No Review of Systems Review of Systems Constitutional: Denies: see HPI, chills, diaphoresis, fever. EENTM: Denies: blurred vision, double vision, visual changes. Respiratory: Denies: cough, hemoptysis, orthopnea. Cardiovascular: Denies: chest pain, edema. GI: Denies: abdominal pain, bloating, constipation. Genitourinary: Denies: discharge, dysuria. Musculoskeletal: Denies: back pain, gout. Skin: Denies: cysts, change in skin color. Neurological/Psychological: Denies: anxiety, cognitive dysfunction. Physical Exam Physical Exam General Appearance: well developed/nourished, no apparent distress, alert, awake Head: atraumatic, normal appearance Eyes: Bilateral: PERRL, EOMI. Ears, Nose, Throat: see below Neck: see below Respiratory: normal breath sounds, chest non-tender, no respiratory distress Cardiovascular: regular rate/rhythm, edema Gastrointestinal: normal bowel sounds, soft, non-tender, no organomegaly Back: normal inspection, normal range of motion Neurologic/Psych: no motor/sensory deficits, awake, alert, oriented x 3 Skin: intact, normal color Core Measures ACS in differential dx? No CVA/TIA Diagnosis: No Sepsis Present: No Sepsis Focused Exam Completed? No Progress Differential Diagnoses . Plan of Care: Orders Procedure Date/time Status ED Holding Orders 01/20 2158 Active Admit to inpatient 01/20 2158 Active Vital Signs 01/20 2158 Active Code Status 01/20 2158 Active Add-on Test (ER Only) 01/20 1959 Active THROAT CULTURE W/QUICK STREP 01/20 1959 Active MONOSPOT TEST 01/20 191 Complete URINE 01/20 172 Complete PARTIAL THROMBOPLASTIN TIME 01/20 172 Complete PROTHROMBIN TIME 01/20 172 Complete COMPREHENSIVE METABOLIC PANEL 01/20 1723 Complete CBC WITHOUT DIFFERENTIAL 01/20 1723 Complete Current Medications Sig/Angel Start time Last Medication Dose Stop Time Status Admin Ampicillin Sodium/ 3,000 MG ONCE ONE 01/20 2200 UNVr Sulbactam Sodium 01/20 2229 (Unasyn) Sodium Chloride 100 ML (Normal Saline 0.9%) Morphine Sulfate 2 MG ONCE ONE 01/20 2200 UNVr (MORPHINE SULFATE) 01/20 2201 Laboratory Tests 01/20/18 191: Anion Gap 8, Estimated GFR > 60, BUN/Creatinine Ratio 26.7 H, Glucose 84, Calcium 9.0, Total Bilirubin 0.4, AST 26, ALT 32, Alkaline Phosphatase 71, Total Protein 7.1, Albumin 4.7, Globulin 2.4, Albumin/Globulin Ratio 2.0, Infectious [place] Titer NEGATIVE 01/20/181826: PT 13.1 H, INR 1.20 H, APTT 32, CBC w Diff NO MAN DIFF REQ, RBC 4.58, MCV 79.6 L, MCH 26.3 L, MCHC 33.0, RDW 17.4 H, MPV 9.6, Gran % 60.7, Lymphocytes % 16.5 L, Monocytes % 14.1 H, Eosinophils % 8.2 H, Basophils % 0.5, Absolute Granulocytes 4.5, Absolute Lymphocytes 1.2, Absolute Monocytes 1.1 H, Absolute Eosinophils 0.6, Absolute Basophils 0 01/20/181728: Urine Test NEGATIVE Initial ED EKG: none Comments: 27-year-old female comes in with swelling underneath her neck. Tender to touch. No lymphadenopathy. We will get imaging. 2158 cellulitis of the submental tissue concerning for early Justus's angina. No signs of bowing of tongue or airway compromise at this time but given the location of the infection the patient will be admitted. We will start the patient on Unasyn. Case discussed with hospitalist. At this time the patient has normal clear speech and voice. Departure Departure Time of Disposition: 2199 Disposition: STILL A PATIENT Condition: Stable Clinical Impression Primary Impression: Justus's angina Referrals: Katya Mendoza MD (PCP/Family) Departure Forms: Customer Survey General Discharge Information Admission Note Spoke With: Lio Weinberg MD Documentation of Exam: Documentation of any treatments & extenuating circumstances including Concerns Regarding Discharge (functional status, medication knowledge or non-compliance, living conditions, etc.) that warrant an admission rather than observation: Given the location of the infection the patient will need to closely watch and get IV antibiotics. Watch for signs of airway compromise and tongue lifting Critical Care Note Critical Care Note Critical Care Time: non-applicable
[2018-01-20] MEDS ORDERED: IMITREX50 M1 PO (21:25)
[2018-01-20] MEDS ORDERED: PRENATAL MULTI1 EAC2 PO (21:25)
[2018-01-20] MEDS ORDERED: DEPO-PROVE150 MG/11 IM (21:26)
--- NOTE | 2018-01-20 21:39 | CT SCAN REPORT ---
EXAMINATION: CT NECK WITH CONTRAST CLINICAL INFORMATION: Rule out abscess, submandibular stone. Right-sided neck and mandible swelling. COMPARISON: None TECHNIQUE: CT of the neck was performed following the intravenous administration of 95 mL Optiray 320. Multiplanar reformats were rendered and reviewed. DLP: 354 mGy-cm FINDINGS: The pharyngeal contours are grossly normal however there is swallowing artifact which somewhat limits evaluation of these structures. The laryngeal contours appear normal. The parapharyngeal fat is preserved. No retropharyngeal collection is seen. There is stranding within the subcutaneous fat of the submental region asymmetrically more prominent on the right. The platysma is not thickened. No fluid collection or abnormal enhancement is seen. The submandibular and parotid glands appear normal and symmetric. No sialolith is seen. Speedwell's ducts are not dilated. No inflammatory stranding is seen along the floor of mouth. The maxillary and mandibular dentition appears normal without periapical lucencies. No periostitis is seen. The major neck vessels demonstrate normal enhancement. The internal jugular veins are patent. Limited evaluation of the intracranial contents appear normal. There is small amount of fluid in the visualized portions of the right inferior mastoid. There is evidence of prior functional endoscopic sinonasal surgery. The left frontal sinus and ethmoid are completely opacified. Additional moderate mucosal thickening is seen throughout the remainder of the paranasal sinuses. No fluid levels are noted. IMPRESSION: - Nonspecific stranding within the subcutaneous fat of the submental region asymmetrically more prominent on the right. No fluid collection. No definite etiology is identified to explain the inflammatory changes. Specifically, there is no evidence of sialolithiasis or sialoadenitis. - Postoperative findings related to prior functional endoscopic sinus surgery with areas of moderate to severe lobular mucosal thickening without fluid levels.
--- NOTE | 2018-01-20 22:06 | History & Physical ---
Verena Calix 01/20/18 2206: General Information and HPI MD Statement: I have seen and personally examined ALEXUS CARABALLO and documented this H&P. The patient is a 27 year old F who presented with a patient stated chief complaint of [submandibular swelling X 1 day]. Source of Information: patient Exam Limitations: no limitations History of Present Illness: 27-year-old female with a past medical history of von Willebrand disease, autoimmune pancytopenia, hypereosinophilic syndrome migraines, sinus surgery, presented to the emergency department for submental and right submandibular swelling 1 day. The patient was doing fine when this morning she started having the soreness in the submandibular region and the right side of the neck at 6 am. At around 3 PM she noticed a sudden swelling in the submental and submandibular region which developed over less than half an hour. She also complained of a throbbing continuous pain in the right submandibular region going all the way to the right ear. The pain is 7 x 10 intensity and went up to 10 x 10 in intensity. She also says that when she eats or talks the movement of her tongue hurts as well. She also reports one episode of vomiting after the CT scan. Patient denies sick contacts/fever/chills/sore throat/myalgias/arthralgias, abdominal pain, constipation, diarrhea, dysuria, hematuria, changes in vision or hearing Allergies/Medications Allergies: Coded Allergies: sulfamethoxazole (From BACTRIM) (Severe, 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) tranexamic acid (From LYSTEDA) (Severe, ANAPHYLAXIS 05/27/17) trimethoprim (From BACTRIM) (Severe, 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) hydrocodone (ITCHY 01/20/18) midazolam (From VERSED) (PER PT - MAKES ME VERY EMOTIONAL, EXTREME MOOD SWINGS 08/24/16) oxycodone (ITCHY 01/20/18) ibuprofen (From MOTRIN) (Severe, Bleeding disorder 08/12/17) Compliance With Home Meds: FAIR Past History Travel History Traveled to [place] past 21 day No Medical History Neurological: migraine EENT: NONE Cardiovascular: NONE Respiratory: PNA Gastrointestinal: NONE Hepatic: NONE Renal: NONE Musculoskeletal: NONE Psychiatric: NONE Endocrine: NONE Blood Disorders: VON WILLDEBRAUNS AUTOIMMUNE PANCYTOPENIA Cancer(s): NONE 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 Relation not specified for: Breast cancer FHx: ovarian cancer Psychosocial History Where do you live? Home Who Do You Live With? child, fiance Services at Home: None Primary Language: Urdu Smoking Status: Never Smoked ETOH Use: occasional use Illicit Drug Use: denies illicit drug use Functional Ability ADLs Independent: dressing, eating, toileting, bathing. Review of Systems Review of Systems Constitutional: Reports: see HPI. EENTM: Reports: see HPI. Cardiovascular: Reports: no symptoms. Respiratory: Reports: no symptoms. GI: Reports: no symptoms. Genitourinary: Reports: no symptoms. Musculoskeletal: Reports: no symptoms. Skin: Reports: no symptoms. Neurological/Psychological: Reports: no symptoms. Hematologic/Endocrine: Reports: no symptoms. Immunologic/Allergic: Reports: no symptoms. All Other Systems: Reviewed and Negative Exam & Diagnostic Data Last 24 Hrs of Vital Signs/I&O Vital Signs Date Time Temp Pulse Resp B/P B/P Pulse O2 O2 Flow FiO2 Mean Ox Delivery Rate 01/20 2351 98.9 92 16 113/63 99 Room Air 01/20 1716 98.6 113 18 131/87 98 Room Air Intake & Output 01/21 0800 01/21 0000 01/20 1600 Intake Total Output Total Balance Patient 150 lb Weight Physical Exam General Appearance Alert, Oriented X3, Cooperative, No Acute Distress Skin No Rashes, No Breakdown, No Significant Lesion Skin Temp/Moisture Exam: Cool/Dry Sepsis Skin Exam (color): Normal for Ethnicity HEENT Atraumatic, PERRLA, EOMI, Mucous Membr. moist/pink, swelling in submandibular &submental region, no redness on face, neck. no discharge. rt preauricular region & submandibular region are very tender to light palpation, no eythema/exudates of oropharynx nor tonsillar area Neck No JVD, No thryomegaly, +2 Carotid Pulse wo Bruit, No LAD Lymphatic Cervical nl Cardiovascular Regular Rate, Normal S1, Normal S2, No Murmurs Lungs Clear to Auscultation, Normal Air Movement Abdomen Normal Bowel Sounds, Soft, No Tenderness, No Hepatospenomegaly, No Masses Neurological Normal Speech, Strength at 5/5 X4 Ext, Sensation Intact, Cranial Nerves 3-12 NL Extremities No Clubbing, No Cyanosis, No Edema, Normal Pulses, No Tenderness/ Swelling Vascular Normal Pulses, Pulses Symmetrical Assessment/Plan Assessment: 27-year-old female with a past medical history of von Willebrand disease, autoimmune pancytopenia, hypereosinophilic syndrome migraines, sinus surgery, presented to the emergency department for right submandibular swelling 1 day. VS: Temp 98.6, heart rate 113, respiration 18, BP 131/87, 98% on room air. Labs: WBC 7.5, RBC 4.58, hemoglobin 12, hematocrit 36.5, platelet 162, granulocytes 60.7%, sodium 136, potassium 4.1, BUN/creatinine ratio 26.7, infectious mono nucleusis titer negative, strep test negative Problems: 1.submental and submandibular swelling- Justus's angina emphysema 2.vWD disease CT neck: - Nonspecific stranding within the subcutaneous fat of the submental region asymmetrically more prominent on the right. No fluid collection. No definite etiology is identified to explain the inflammatory changes. Specifically, there is no evidence of sialolithiasis or sialoadenitis. - Postoperative findings related to prior functional endoscopic sinus surgery with areas of moderate to severe lobular mucosal thickening without fluid levels. Plan: -Admit to general medicine floor -Start IV antibiotics: Unasyn 3gm IV every 6 -Continue IV fluids normal saline -Blood cultures -Pain controlled by Tylenol and morphine. Avoid ibuprofen Diet regular DVT prophylaxis Alps and subcu Lovenox CODE STATUS full code As Ranked By This Provider Problem List: 1. Justus's angina 2. Von Willebrand disease Core Measures/Misc (02/01) Acute Coronary Syndrome ACS Diagnosis: No Congestive Heart Failure Congestive Heart Failure Diagnosis No Cerebrovascular Accident CVA/TIA Diagnosis: No VTE (View Protocol) VTE Risk Factors Acute Medical Illness No Mechanical VTE Prophylaxis d/t N/A MechProphylax Ordered No VTE Pharm Prophylaxis d/t NA PharmProphylax ordered Sepsis (View protocol) Sepsis Present: No If YES complete Sepsis Event Note If YES complete Sepsis Event Note [facility] 01/20/18 6761: General Information and HPI Allergies/Medications Home Med list Amoxicillin/Potassium Clav (Augmentin 875-125 Tablet) 875 MG-125 MG TABLET 1 TAB PO BID Infection Hydromorphone HCl (Dilaudid) 2 MG TABLET 1 TAB PO Q6-PRN PRN severe pain Medroxyprogesterone Acetate (Depo-Provera) 150 MG/ML SYRINGE 1 ML IM Q3M CONTROL (Reported) Pnv No.122/Iron/Folic Acid ( Multi Tablet) 27 MG IRON-800 MCG TABLET 1 TAB PO DAILY POST- MVI (Reported) Sumatriptan Succinate (Imitrex) (Unknown Strength) TABLET (Unknown Dose) PO AD PRN MIGRAINES (Reported) Core Measures/Misc (02/01) Sepsis (View protocol) If YES complete Sepsis Event Note If YES complete Sepsis Event Note Resident Review Statement Resident Statement: examined this patient, discussed with commercial internship, reviewed EMR data (avail) Other Findings: Ms. Caraballo is a 25-year-old with a PMH significant for autoimmune pancytopenia (diagnosed in 2002) and Von Willebrand disease on monthly IVIG (previously on weekly Neupogen as well), chronic sinusitis s/p surgery in December 2015 and migraine who presented to the ED with complaints of right sided facial pain. The patient states that on waking up this morning she felt her mouth and neck to be sore. Around 3pm this afternoon, she developed a severe pain involving the right side of her face radiating to her ear, 7/10 in severity but progressed to 10/10 with subsequent swelling of her lower jaw (mandibular area). She came to the ED for further evaluation. She denies any fevers, chills, hearing or visual changes , chest pain, SOB, abdominal pain or any other associated symptoms. ROS: As per HPI Physical Exam: General Appearance: well developed/nourished, mild distress Head: atraumatic, normal appearance Eyes: Bilateral: normal appearance, PERRLA, . Ears, Nose, Throat: normal hearing and speech. No sinus tenderness. No facial droop. Severe tenderness involving the right side of face from the ear to the submandibular region. Respiratory: normal breath sounds, chest non-tender, no respiratory distress Cardiovascular: regular rate/rhythm, normal S1 and S2, no M/R/G Gastrointestinal: soft, no tenderness Extremities: no edema Skin: intact, normal color, warm/dry Assessment: 1. Inflammation of submental/submandibular region with ? Justus's angina 2. History of Von Willebrand disease Plan: * Admit patient to general medicine floor. * Start IV Unasyn 3g q6. * Pain control with tylenol and morphine * Consider ENT evaluation. * Avoid NSAIDS * Diet: Regular * DVT Prophylaxis: SC Lovenox * Code: Full Code Lio Weinberg 01/21/18 0201: Core Measures/Misc (02/01) Sepsis (View protocol) If YES complete Sepsis Event Note If YES complete Sepsis Event Note Attending MD Review Statement Attending Statement Attending MD Statement: examined this patient, discuss w/resident/PA/BUNDLE CLERK, agreed w/resident/PA/BUNDLE CLERK Attending Assessment/Plan: Addendum by . Patient was seen and examined at bedside today ( ) at .. Reviewed the history physical done by the resident. Reviewed the past medical family, family, social history. ROS: 10 point system reviewed and negative except as described above. Exam: Alert, awake, oriented 3, speech is normal Throat examination shows mildly enlarged left tonsil, otherwise no tonsillar exudate erythema, pharyngeal erythema. Has a diffuse severe tenderness on the external examination of the throat but no drainable collection, no fluctuation. No lymphadenopathy on exam. Agree with the rest of the physical by the resident. CT neck: IMPRESSION: - Nonspecific stranding within the subcutaneous fat of the submental region asymmetrically more prominent on the right. No fluid collection. No definite etiology is identified to explain the inflammatory changes. Specifically, there is no evidence of sialolithiasis or sialoadenitis. - Postoperative findings related to prior functional endoscopic sinus surgery with areas of moderate to severe lobular mucosal thickening without fluid levels. Labs reviewed. Assessment and plan: #Justus's angina: No drainable abscess on the CT. see the CT report as above. Will give her Unasyn. Consider ENT evaluation. Oral feeds if tolerated. Streptococcal throat screening test is negative. Agree with
[2018-01-21 04:04] VITALS: BP 120/80
--- NOTE | 2018-01-21 06:34 | PN- Housestaff ---
Assessment/Plan Assessment: Ms. Caraballo is a 25-year-old with a PMH significant for autoimmune pancytopenia (diagnosed in 2002) and Von Willebrand disease on monthly IVIG (previously on weekly Neupogen as well), chronic sinusitis s/p surgery in December 2015 and migraine who presented to the ED with complaints of right sided facial pain. The patient states that on waking up this morning she felt her mouth and neck to be sore. Around 3pm 01/20/18, she developed a severe pain involving the right side of her face radiating to her ear, 7/10 in severity but progressed to 10/10 with subsequent swelling of her lower jaw (mandibular area). She came to the ED for further evaluation. She denies any fevers, chills, hearing or visual changes, chest pain, SOB, abdominal pain or any other associated symptoms. CT neck: - Nonspecific stranding within the subcutaneous fat of the submental region asymmetrically more prominent on the right. No fluid collection. No definite etiology is identified to explain the inflammatory changes. Specifically, there is no evidence of sialolithiasis or sialoadenitis. - Postoperative findings related to prior functional endoscopic sinus surgery with areas of moderate to severe lobular mucosal thickening without fluid levels. PROBLEM LIST: 1. Submental/Submandibular Swelling - Ludwigs Angina? 2. vWD Disease PLAN: * IV Antibiotics Unasyn 3gm IV q6hrs * IV Fluids Normal Saline * F/u Blood cultures * Pain: Tylenol + Morphine * Consider ENT Consultation Code: Full Code DVT PPx: Alps + Lovenox Diet: Regular
[2018-01-21 06:50] VITALS: BP 100/70
--- NOTE | 2018-01-21 08:01 | PN- Housestaff ---
ArmaniBlanchard 01/21/18 0801: Subjective Follow-up For: Right-sided facial swelling possibly Justus angina. Tele-Events Since Last Visit: Off tele Subjective: No overnight events. Patient remained afebrile. Seen and examined this morning. Compared to yesterday on admission patient's right-sided facial redness has been improved. Patient is still complaining of pain 10/10 on the right side of the face and also achiness in the body. She denied chest pain, nausea, palpitation, shortness of breath, chills, fever, abdominal pain and dysuria. Patient reported having some difficulty in swallowing. Review of Systems Constitutional: Denies: chills, fever. EENTM: Reports: see HPI. Cardiovascular: Denies: chest pain, palpitations. Respiratory: Denies: cough, short of breath, sputum production. Gastrointestinal: Denies: abdominal pain, diarrhea, nausea, vomiting. Genitourinary: Reports: no symptoms. Musculoskeletal: Reports: see HPI. Neurological/Psychological: Reports: see HPI. Objective Last 24 Hrs of Vital Signs/I&O Vital Signs Date Time Temp Pulse Resp B/P B/P Pulse O2 O2 Flow FiO2 Mean Ox Delivery Rate 01/21 0650 98.4 84 20 100/70 99 Room Air 01/21 0404 98.7 90 20 120/80 100 Room Air 01/21 0314 97.8 90 18 112/64 98 Room Air 01/20 2351 98.9 92 16 113/63 99 Room Air 01/20 1716 98.6 113 18 131/87 98 Room Air Intake & Output 01/21 1600 01/21 0800 09 0000 Intake Total 220 Output Total Balance 220 Intake, IV 120 Intake, Oral 100 Patient 152 lb 150 lb Weight Weight Bed scale Measurement Method Physical Exam General Appearance: Alert, Oriented X3, Cooperative Skin Temp/Moisture Exam: Warm/Dry Sepsis Skin Exam (color): Normal for Ethnicity HEENT: Atraumatic, PERRLA, EOMI Neck: right sided submandibular swelling. Cardiovascular: Normal S1, Normal S2 Lungs: Clear to Auscultation Abdomen: Soft, No Tenderness Neurological: Normal Speech, Strength at 5/5 X4 Ext, Normal Tone Extremities: No Edema Assessment/Plan Assessment: 25 YO F with a PMH significant for autoimmune pancytopenia (diagnosed in 2002) and Von Willebrand disease on monthly IVIG (previously on weekly Neupogen as well), chronic sinusitis s/p surgery in December 2015 and migraine who presented to the ED with complaints of right sided facial pain. Seeing the patient on telemetry floor for following problems. Right-sided facial swelling: -Possibly Justus angina as patient reported rapid is spreading swelling and unbearable pain even with movement of the tongue although patient has just one- sided swelling. -Her CT scan neck remained negative for any abscess and submandibular or sublingual region and remain negative for sialoadenitis or sialolithiasis. -Empiric therapy with Unasyn 3 g IV every 6 hourly. -Adequate pain management with Dilaudid and morphine as needed. -Carefully observing for her airway compromise. -Follow-up for improvement in the swelling and follow-up WBC count. -C-reactive protein can be followed for progress of the patient. -Her wbc count remained normal and she is afibrile. Patient wants to leave as she has to follow her appointment tomorrow. Patient can be discharged on oral antibiotics to complete 2 weeks course of Augmentin. -Patient was instructed to follow her primary care physician in 1 week. Chronic sinus infection status post surgery: -Continue saline nasal spray as needed History of von Willebrand: -Patient received IV immunoglobulin in the past and she reported she is going to start it again next month. History of migraine: -Not taking sumatriptan anymore. DVT prophylaxis: Mechanical only due to von Willebrand disease. CODE STATUS: Full code Problem List: 1. Justus's angina Pain Ratin Pain Location: right side of face Pain Goal: Pain 4 or less Pain Plan: pain pathway Tomorrow's Labs & Rationales: cbc. Errol Mata MD 01/21/18 1458: Attending MD Review Statement Attending Statement Attending MD Statement: examined this patient, discuss w/resident/PA/AEROSPACE MEDICINE PHYSICIAN, agreed w/resident/PA/AEROSPACE MEDICINE PHYSICIAN, reviewed EMR data (avail), discussed with nursing, discussed with case mgmt, amended to note Attending Assessment/Plan: Patient seen and examined. Resting comfortably unless in any acute distress. Afebrile overnight and remained hemodynamically stable. Complains of pain in the right shoulder. On examination of the oral cavity no erythema or swelling noted. No discharge noted. She has tenderness on the right maxillary region. CT scan report reviewed. No evidence of abscess collection. We did recommend antibiotic therapy overnight and reevaluate him for adequate pain control in the morning however patient reports that she has an appointment for 8.30 tomorrow morning. She was discharged today with prescriptions for antibiotic therapy to complete 10 days of treatment. She also provided prescriptions for Dilaudid as requested. She has been advised to follow-up with her primary care provider tomorrow. She was discharged in stable medical condition. She has history of Chronic anemia. her hemoglobin level this morning is close to baseline. She has been advised to follow-up with her primary care provider as an outpatient.
[2018-01-21 08:35] LABS: ABSOLUTE BASOPHIL COUNT 0 /CUMM (0.0-0.2); ABSOLUTE EOSINOPHIL COUNT 0.6 /CUMM (0.0-0.7); ABSOLUTE GRANULOCYTE CT 1.9 /CUMM (1.4-6.5); ABSOLUTE LYMPH COUNT 1.3 /CUMM (1.2-3.4); ABSOLUTE MONOCYTE COUNT 0.7 /CUMM (0.10-0.60); BASOPHIL % 0.8 % (0.0-2.0); EOSINOPHIL % 13.5 % (0-5); GRANULOCYTE % 41.4 % (42.2-75.2); MEAN CORPUSCULAR HGB CONC 32.7 G/DL (33.0-37.0); MEAN CORPUSCULAR VOLUME 79.4 FL (81.0-99.0); MEAN PLATELET VOLUME 10.5 FL (7.4-10.4); PLATELET COUNT 136 /CUMM (130-400); RBC DISTRIBUTION WIDTH 17.6 % (11.5-14.5); RED BLOOD CELL CT 4.03 /CUMM (4.20-5.40); WHITE BLOOD CELL COUNT 4.6 /CUMM (4.8-10.8)
[2018-01-21] MEDS ORDERED: AUGMENTIN 875-1 EACH PO (10:15)
--- NOTE | 2018-01-21 10:18 | Patient Discharge Instructions ---
Discharge Instructions General Discharge Information You were seen/treated for: Justus angina/facial cellulitis Watch for these problems: Increase in pain while chewing, difficulty in breathing, difficulty in swallowing, cyanosis of the face, chill, fever and increasing redness of the face. -If you experience any of these symptoms please come to ED or call to her primary care physician. Special Instructions: Follow-up with your primary care physician in 1 week Diet Recommended Diet: Regular Activity Activity Self Limited: Yes Acute Coronary Syndrome Inclusion Criteria At DC or during hospital stay patient has or had the following: ACS DIAGNOSIS No Discharge Core Measures Meds if any: Prescribed or Continued at Discharge Meds if any: NOT Prescribed or Continued at Discharge Congestive Heart Failure Inclusion Criteria At DC or during hospital stay patient has or had the following: CHF DIAGNOSIS No Discharge Core Measures Meds if any: Prescribed or Continued at Discharge Meds if any: NOT Prescribed or Continued at Discharge Cerebrovascular accident Inclusion Criteria At DC or during hospital stay patient has or had the following: CVA/TIA Diagnosis No Discharge Core Measures Meds if any: Prescribed or Continued at Discharge Meds if any: NOT Prescribed or Continued at Discharge Venous thromboembolism Inclusion Criteria VTE Diagnosis No VTE Type NONE VTE Confirmed by (Test) NONE Discharge Core Measures - Per Current guidelines, there needs to be overlap - treatment for the first 5 days of Warfarin therapy. - If discharged on Warfarin prior to 5 days of - overlap therapy, the patient will need to be - assessed for post discharge needs including - *Post discharge parental anticoagulation - *Warfarin and/or parental anticoagulation education - *Follow up date to check INR post discharge At least 5 days overlap therapy as Inpatient No Meds if any: Prescribed or Continued at Discharge Note: Overlap Therapy is Warfarin and Anticoagulant Meds if any: NOT Prescribed or Continued at Discharge
[2018-01-21] MEDS ORDERED: DILAUDID2 M1 PO (10:28)
--- NOTE | 2018-01-21 10:44 | Discharge Summary ---
Visit Information Visit Dates Admission Date: 01/20/18 Discharge Date: 01/21/18 Hospital Course Course Attending Physician: Errol Mata MD Primary Care Physician: Katya Mendoza MD [facility] Course: 25 YO F with a PMH significant for autoimmune pancytopenia (diagnosed in 2002) and Von Willebrand disease on monthly IVIG (previously on weekly Neupogen as well), chronic sinusitis s/p surgery in December 2015 and migraine who presented to the ED with complaints of right sided facial pain. ED course: Vital: Temperature 98.6, pulse 113, respiratory rate 18, blood pressure 131/87, oxygen saturation 98% on room air. Labs: WBC count 7.5, hemoglobin 12.0, hematocrit 36.5, platelet count 162, sodium 136, potassium 4.1, BUN 16, creatinine 0.6, INR 1.20, PT 13.1, glucose 84 , calcium 9.0, total bilirubin 0.4, AST 26, ALT 32 Right-sided facial swelling and redness: Patient presented with sudden onset of right-sided facial swelling and redness with tenderness. Considering patient's acute presentation there was concern of Justus angina. Patient was admitted for IV antibiotics and close observation for her respiratory status. Patient was closely observed for her swelling progression and respiratory status overnight. Patient swelling has been decreased along with her redness. Patient was given IV Unasyn. Patient remained afebrile overnight. Her CT scan remained negative for any abscess or sialolithiasis/sialodenitis. For her pain control she received Percocet and Dilaudid as needed. Patient was not given any NSAID due to her von Willebrand disease. Patient wanted to leave considering her appointment tomorrow so she was discharged for 2 weeks course of Augmentin. Patient was instructed to follow her primary care physician and 1 week. Patient was also instructed to come to ED or call to her primary care physician if her swelling start worsen or start increasing redness or if there is any concern of difficulty in breathing or difficulty in swallowing. Chronic sinus infection status post surgery: Continue saline nasal spray as needed. History of von Willebrand: Patient received IV immunoglobulin in the past and she reported she is going to start it again next month. History of migraine: Not taking sumatriptan anymore. DVT prophylaxis: Mechanical only due to von Willebrand disease. CODE STATUS: Full code Allergies: Coded Allergies: sulfamethoxazole (From BACTRIM) (Severe, 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) tranexamic acid (From LYSTEDA) (Severe, ANAPHYLAXIS 05/27/17) trimethoprim (From BACTRIM) (Severe, 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) hydrocodone (ITCHY 01/20/18) midazolam (From VERSED) (PER PT - MAKES ME VERY EMOTIONAL, EXTREME MOOD SWINGS 08/24/16) oxycodone (ITCHY 01/20/18) ibuprofen (From MOTRIN) (Severe, Bleeding disorder 08/12/17) Pertinent Lab Results: Neck CT scan on 01/20/2018: IMPRESSION: - Nonspecific stranding within the subcutaneous fat of the submental region asymmetrically more prominent on the right. No fluid collection. No definite etiology is identified to explain the inflammatory changes. Specifically, there is no evidence of sialolithiasis or sialoadenitis. - Postoperative findings related to prior functional endoscopic sinus surgery with areas of moderate to severe lobular mucosal thickening without fluid levels. WBC count 4.6, hemoglobin 10.5, hematocrit 32.0, platelet count 136, sodium 136, potassium 4.1, anion gap 8, BUN 16, creatinine 0.6, glucose 84. Disposition Summary Disposition Principal Diagnosis: Justus angina Additional Diagnosis: History of chronic sinus infection status post surgery History of migraine headache History of von Willebrand disease History of autoimmune pancytopenia. Discharge Disposition: home or self care Discharge Instructions General Discharge Information Code Status: Full Code Patient's Diet: Regular diet Patient's Activity: Self-limited Follow-Up Instructions/Appts: Follow-up with your primary care physician in 1 week. Increase in pain while chewing, difficulty in breathing, difficulty in swallowing, cyanosis of the face, chill, fever and increasing redness of the face. -If you experience any of these symptoms please come to ED or call to her primary care physician. Medications at Discharge Discharge Medications: Continue taking these medications: Pnv No.122/Iron/Folic Acid ( Multi Tablet) 27 MG IRON-800 MCG TABLET 1 Tablet ORAL DAILY Comments: Last Taken: 01/21/18 Time: 9 AM Sumatriptan Succinate (Imitrex) (Unknown Strength) TABLET Unknown Dose ORAL As Directed as needed for MIGRAINES Comments: NOT GIVEN Medroxyprogesterone Acetate (Depo-Provera) 150 MG/ML SYRINGE 1 Milliliters INTRAMUSC Every 3 months Comments: NOT GIVEN Start taking the following new medications: Amoxicillin/Potassium Clav (Augmentin 875-125 Tablet) 875 MG-125 MG TABLET 1 Tablet ORAL TWICE DAILY Qty = 14 No Refills Comments: NOT GIVEN Hydromorphone HCl (Dilaudid) 2 MG TABLET 1 Tablet ORAL EVERY 6 HOURS NEEDED as needed for severe pain Qty = 16 No Refills Comments: IV DILAUDID 0.2MG GIVEN AT 1230 PM Copies To: Kelly LEE,Katya Attending Review Statement Documenting Attending: Errol Mata MD Other Findings: Discharge home in stable condition.
== END 2018-01-21 12:55 | DRG 115 ==
LOC: ERH 17:00 → ERHI 21:58 → 1NO 21:58 → ENRESERV 01-21 03:28 → 1NO 01-21 03:56 → ENPENDDIS 01-21 11:24 → 1NO 01-21 12:55
PROVIDERS: Internal Medicine; Physician Assistant
DX: K12.2 Cellulitis and abscess of mouth (principal); D68.0 Von Willebrand disease; D61.818 Other pancytopenia; J32.9 Chronic sinusitis, unspecified; R68.84 Jaw pain; Z88.6 Allergy status to analgesic agent; Z88.5 Allergy status to narcotic agent; Z88.2 Allergy status to sulfonamides; Z88.8 Allergy status to other drugs, medicaments and biological substances
CPT/HCPCS: ERO; 36592; 81025; 87040; J0131; J1650

== ENCOUNTER 2018-01-30 16:23 | Emergency (ER) | payer OTHER ==
[~2018-01-30] VITALS: Ht 167.6 cm; Wt 68.0 kg
[~2018-01-30 16:23] MED LIST changes: +DEPO-PROVE150 MG/11 IM; +IMITREX50 M1 PO; +PRENATAL MULTI1 EAC2 PO
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
[2018-01-30] MEDS ORDERED: CYCLOBENZAPRINE10 M1 PO (18:40)
[2018-01-30] MEDS ORDERED: TYLENOL EXTRA500 M2 PO (18:40)
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
[2018-01-30 19:18] VITALS: BP 117/76
== END 2018-01-30 19:19 ==
LOC: ERH 16:23
DX: S16.1XXA Strain of muscle, fascia and tendon at neck level, initial encounter (principal); V49.40XA Driver injured in collision with unspecified motor vehicles in traffic accident, initial encounter; Y92.410 Unspecified street and highway as the place of occurrence of the external cause
CPT/HCPCS: 72050